=== PATIENT | male | born 1980 | race Asian ===

== ENCOUNTER 2023-08-01 10:15 | Outpatient (AMB) | payer OTHER, SELFPAY ==
--- NOTE | 2023-08-01 10:18 | MHC.OFFVIS ---
Vital Signs 08/01/23 10:19 Height 6 ft Weight 152 lb 8.958 oz BMI 20.7 BP 112/60 Blood Pressure Location Lt brachial Position Sitting Pulse 61 Intake Visit Reasons: Colonoscopy and EGD screening Intake Note: New patient in office today for EGD and Colonoscopy screening. CC: Patient c/o constipation and a little bit of blood when he wipes. Denies other GI symptoms today. Linoleum Installer Required: No Allergies Tetracyclines Allergy (Severe, Verified 08/29/23 12:13) urticaria minocycline Allergy (Unknown, Verified 08/29/23 12:13) Unknown HPI HPI Colonoscopy and EGD screening: Details: 43-year-old male here for a ?colonoscopy and EGD screening? he is referred by the [facility]. PMX TYSON HYPOTHYROID Ichthyosis Eczema/seborrheic dermatitis Posttraumatic stress disorder/anxiety depression Optic nerve disorder Constipation * SURGICAL HISTORY Lasix eye surgery Wilson teeth removal * ALLERGIES Minocycline tetracycline - uticaria * Labs supplied by the [facility]: 02/2023 unremarkable CBC, unremarkable renal and hepatic panels. TODAY'S VISIT He has anxious halting speech pattern that slows the history relations. He did not think he was referred for a colonoscopy, he is concerned about chronic constipation. He will go 3-4 days w/o a BM. He will have intermittent bloating and some left sided pain with he is very backed up. This has been a problem for years. He admits he does not drink enough he has 1c coffee in the am ant then just water, no soda. No extreme ETOH. He eats alot of fruits and veggies. He does take a fiber supplement. He is supposed to take it bid but frequently fogets the second dose. He has no real experience with OTC laxative. No upper GI sx and not RB, he has a hard time gaining weight but he has not been losing weight. He has not been on thyroid medications for a couple of years, he says his doctors stopped the medications because it went back to normal. He has never seen an stevedoring supervisor. He has intermittent episodes of a rash on the trunk that is red but not raised. He does not what sets it off adn he has not mentioned this to other providers. This happens about once every 2 weeks. This occurs mostly at night. Bilirubin is not elevated. He has TYSON and denies any other cardiac or respiratory problems. He is naive to anesthesia and sedation. No ID problems. His older brother had polyps. ROV 4 weeks. Trial Senna. COUNT INCLUDES THE [facility] Surgical History S/P LASIK surgery of both eyes Family History Father Prostate cancer Social History Household Members: Family Household Members Other:: Aunt Alcohol intake: current Alcohol intake frequency: holidays/special occasions only Alcohol type: beer Patient Tobacco Use Status: Former Tobacco user Quit Date: 2012 service: Yes Current occupational status: disabled Review of Systems Const Denies fatigue, Denies fever(s), Denies night sweats, Denies poor appetite and Denies weight loss ENT Reports Normal hearing present, Denies dental pain, Denies dysphagia, Denies hearing loss, Denies mouth pain, Denies odynophagia, Denies throat swelling, Denies tongue swelling and Reports other (Dentition adequate) Card Reports no additional complaints Resp Reports no additional complaints GI Details: Denies abdominal pain, Denies melena, Reports bloating, Denies hematochezia, Reports constipation, Denies GI cramping, Denies dysphagia, Denies excessive flatus, Denies early satiety, Denies heartburn, Denies diarrhea, Denies nausea, Denies odynophagia, Denies vomiting and Denies hematemesis Skin/Breast Denies pruritus, Denies lesions, Reports rash and Denies jaundice Neuro Reports Normal hearing present and Denies Abnormal speech present Endo Denies fatigue Aller/Immun Denies throat swelling and Denies tongue swelling Physical Exam Vital Signs: Last Vital Signs Pulse 61 08/01/23 10:19 BP 112/60 08/01/23 10:19 BMI result Body Mass Index 20.7 Const General: cooperative, no acute distress, well developed and well groomed Nutritional Appearance: average body habitus and well nourished Orientation/consciousness: oriented to person, oriented to place and oriented to time Limitations: No language barrier and other limitations HEENT Head: Yes normocephalic and Yes atraumatic Eyes General: appearance normal, both eyes and all related structures Pupils: Equal, round and reactive pupils present Neck Neck: Yes normal visual inspection and Yes no lymphadenopathy Thyroid: Thyroid normal Resp Effort & Inspection: normal respiratory effort and able to speak in complete sentences Auscultation: clear to auscultation bilaterally Cardio Rate: regular rate Rhythm: regular rhythm Heart sounds: Normal, physiologic split S2 sound present Peripheral pulses: radial pulses present and posterior tibial pulses present GI Inspection: No distended and No Abdominal panniculus present Palpation (GI): Soft to palpation, nontender, no guarding, not rigid and No hepatosplenomegaly present Percussion: Yes normal to percussion Auscultation: normal bowel sounds Rectal Exam - Male: Yes deferred Skin General skin exam: no rashes or lesions noted, turgor normal, skin not dry, no jaundice, No spider nevi and no striae Rashes: no rashes Nails: normal Neuro General: oriented to person, oriented to place and oriented to time Cranial nerves: Yes Equal, round and reactive pupils present and Yes Normal hearing present Speech: No Abnormal speech present Extrem General: Yes normal to inspection, No clubbing, No cyanosis and No edema Psych Appearance: grossly normal and well kempt Mental Status: mental status grossly normal Speech and movement: Normal speech and movement present Affect: normal affect Attitude: cooperative Thought process: Normal thought process present and not confabulating Thought content: Normal thought content present Insight: Fair insight present (Psych) and Limited insight present (Psych) Judgement: Fair judgement present (Psych) and Limited judgement present (Psych) Assessment & Plan Assessment & Plan (1) Pre-op examination: Code(s): Z01.818 - Encounter for other preprocedural examination Category: Medical (2) Constipation: Code(s): K59.00 - Constipation, unspecified Category: Medical Plan He has anxious halting speech pattern that slows the history relations. He did not think he was referred for a colonoscopy, he is concerned about chronic constipation. He will go 3-4 days w/o a BM. He will have intermittent bloating and some left sided pain with he is very backed up. This has been a problem for years. He admits he does not drink enough he has 1c coffee in the am ant then just water, no soda. No extreme ETOH. He eats alot of fruits and veggies. He does take a fiber supplement. He is supposed to take it bid but frequently fogets the second dose. He has no real experience with OTC laxative. No upper GI sx and not RB, he has a hard time gaining weight but he has not been losing weight. He has not been on thyroid medications for a couple of years, he says his doctors stopped the medications because it went back to normal. He has never seen an stevedoring supervisor. He has intermittent episodes of a rash on the trunk that is red but not raised. He does not what sets it off adn he has not mentioned this to other providers. This happens about once every 2 weeks. This occurs mostly at night. Bilirubin is not elevated. He has TYSON and denies any other cardiac or respiratory problems. He is naive to anesthesia and sedation. No ID problems. His older brother had polyps. ROV 4 weeks. Trial Senna. Orders: Orders Colonoscopy - GI Use Only 08/01/23 Z.818 - Encounter for other preprocedural examination Thyroid Peroxidase Antibodies 08/01/23 K59.00 - Constipation, unspecified, Z818 - Encounter for other preprocedural examination Comprehensive Met. Panel 08/01/23 K59.00 - Constipation, unspecified, Z.818 - Encounter for other preprocedural examination TSH reflex Free T4 08/01/23 K59.00 - Constipation, unspecified, Z.818 - Encounter for other preprocedural examination Medications: New peg 3350-electrolytes 236-22.74-6.74 -5.86 gram (Golytely) until fecal effluent is clear; do not exceed a total volume of 2,000 mL 240 mL PO Q10M 4,000 mL 0RF 1 day Z12.11 - Encounter for screening for malignant neoplasm of colon sennosides (Senna Laxative) 17.2 mg (2 x 8.6 mg) PO BEDTIME 60 tabs 3RF K59.00 - Constipation, unspecified bisacodyl (Dulcolax (bisacodyl)) 10 mg (2 x 5 mg) PO BEDTIME 4 tabs 0RF 2 days Coding Level of Care Code New Pt Level 3 (95255) Diagnoses Pre-op examination Z01.818 Constipation K59.00
[2023-08-01 10:19] VITALS: BP 112/60; PULSE 61; BMI 20.7
== END 2023-08-01 11:29 | disposition home or self-care (01) ==
PROVIDERS: PCP Internal Medicine; Visit Provider Nurse Practitioner
DX: K59.04 Chronic idiopathic constipation (principal); Z01.818 Encounter for other preprocedural examination; Z83.719 Family history of colon polyps, unspecified
CPT/HCPCS: 99203

== ENCOUNTER 2023-08-01 10:15 | Outpatient (REF) | payer OTHER, SELFPAY ==
[2023-08-01 12:57] LABS: Alanine Aminotransferase 25 U/L (0-40); Albumin Level 4.3 g/dL (3.5-5.0); Alkaline Phosphatase 73 U/L (39-117); Anion Gap 9 (12-20); Aspartate Amino Transferase 22 U/L (5-37); Bilirubin Total 0.7 mg/dL (0.0-1.0); Blood Urea Nitrogen 19 mg/dL (9-16); Calcium 9.8 mg/dL (8.4-10.2); Carbon Dioxide 31 mmol/L (22-29); Chloride 105 mmol/L (96-108); Estimated Glomerular Filt Rate > 60; Glucose Random 84 mg/dL (60-115); Potassium 4.2 mmol/L (3.3-5.1); Sodium 141 mmol/L (135-145); Total Protein 7.6 g/dL (6.5-8.0)
[2023-08-01 13:14] LABS: TSH reflex Free T4 5.32 uIU/mL (0.32-4.0)
[2023-08-01 13:54] LABS: Free T4 (Free Thyroxine) 0.82 ng/dL (0.71-1.85)
[2023-08-02 18:03] LABS: Thyroid Peroxidase Antibodies 2 IU/mL (<9)
== END 2023-08-01 10:16 | disposition home or self-care (01) ==
LOC: HO.LAB 10:15
PROVIDERS: PCP Internal Medicine; Visit Provider Nurse Practitioner
DX: Z01.818 Encounter for other preprocedural examination (principal); K59.00 Constipation, unspecified
CPT/HCPCS: 36415; 80053; 84439; 84443; 86376; 99202

== ENCOUNTER 2023-08-29 12:12 | Outpatient (AMB) | payer OTHER, SELFPAY ==
--- NOTE | 2023-08-29 12:13 | MHC.OFFVIS ---
Vital Signs 08/29/23 12:17 Height 6 ft Weight 152 lb BMI 20.6 BP 92/53 L Blood Pressure Location Lt brachial Position Sitting Pulse 87 Intake Visit Reasons: Follow up Intake Note: Follow up for constipation,lab results Patient cc: diarrhea on and off, denies any other GI issues. [employer] Required: No Accompanied by: Self / Same As Patient Allergies Tetracyclines Allergy (Severe, Verified 08/29/23 12:13) urticaria minocycline Allergy (Unknown, Verified 08/29/23 12:13) Unknown HPI HPI Follow up: Details: Assessment & Plan (1) Pre-op examination: Code(s): Z01.818 - Encounter for other preprocedural examination (2) Constipation: Code(s): K59.00 - Constipation, unspecified Orders: Orders Colonoscopy - GI Use Only Today Z01.818 - Encounter for other preprocedural examination Thyroid Peroxidase Antibodies Today K59.00 - Constipation, unspecified, Z01.818 - Encounter for other preprocedural examination Comprehensive Met. Panel Today K59.00 - Constipation, unspecified, Z01.818 - Encounter for other preprocedural examination TSH reflex Free T4 Today K59.00 - Constipation, unspecified, Z01.818 - Encounter for other preprocedural examination Medications: New peg 3350-electrolytes 236-22.74-6.74 -5.86 gram (Golytely) until fecal effluent is clear; do not exceed a total volume of 2,000 mL 240 mL PO Q10M 1 day 4,000 mL 0RF Z12.11 - Encounter for screening for malignant neoplasm of colon sennosides (Senna Laxative) 17.2 mg (2 x 8.6 mg) PO BEDTIME 60 tabs 3RF K59.00 - Constipation, unspecified bisacodyl (Dulcolax (bisacodyl)) 10 mg (2 x 5 mg) PO BEDTIME 2 days 4 tabs 0RF He has anxious halting speech pattern that slows the history taking. He did not think he was referred for a colonoscopy, he is concerned about chronic constipation. He will go 3-4 days w/o a BM. He will have intermittent bloating and some left sided pain with he is very backed up. This has been a problem for years. He admits he does not drink enough he has 1c coffee in the am ant then just water, no soda. No extreme ETOH. He eats alot of fruits and veggies. He does take a fiber supplement. He is supposed to take it bid but frequently fogets the second dose. He has no real experience with OTC laxative. No upper GI sx and not RB, he has a hard time gaining weight but he has not been losing weight. He has not been on thyroid medications for a couple of years, he says his doctors stopped the medications because it went back to normal. He has never seen an trim stencil maker. He has intermittent episodes of a rash on the trunk that is red but not raised. He does not what sets it off adn he has not mentioned this to other providers. This happens about once every 2 weeks. This occurs mostly at night. He has TYSON but no other resp probs no card Naive to anes and sed. No ID problems. His older brother had polyps. ROV 4 weeks. Trial Senna. LABS: Laboratory Tests 08/01/23 11:58 Estimated GFR > 60 Total Bilirubin 0.7 AST 22 ALT 25 Alkaline Phosphatase 73 TSH 5.32 H Free T4 0.82 Thyroid Peroxidase Ab 2 COLONOSCOPY BIOPSY TODAY'S VISIT He has anxious halting speech pattern that slows the history taking. He has not yet been contacted for colonoscopy. He does feel generally better with the senna but is concerned about taking it nursing home. He already has psyllium fiber and is taking it qd. I suggest magnesium as a more natural alternative. ROV after colonoscopy. [facility] Surgical History S/P LASIK surgery of both eyes Family History Father Prostate cancer Social History Household Members: Family Household Members Other:: Aunt Alcohol intake: current Alcohol intake frequency: holidays/special occasions only Alcohol type: beer Patient Tobacco Use Status: Former Tobacco user Quit Date: 2012 service: Yes Current occupational status: disabled Review of Systems Const Denies fatigue, Denies fever(s), Denies night sweats, Denies poor appetite and Denies weight loss ENT Reports Normal hearing present, Denies dental pain, Denies dysphagia, Denies hearing loss, Denies mouth pain, Denies odynophagia, Denies throat swelling, Denies tongue swelling and Reports other (Dentition adequate) Card Reports no additional complaints Resp Reports no additional complaints GI Details: Denies abdominal pain, Denies melena, Reports bloating, Denies hematochezia, Reports constipation, Denies GI cramping, Denies dysphagia, Denies excessive flatus, Denies early satiety, Denies heartburn, Denies diarrhea, Denies nausea, Denies odynophagia, Denies vomiting and Denies hematemesis Skin/Breast Denies pruritus, Denies lesions, Denies rash and Denies jaundice Neuro Reports Normal hearing present and Denies Abnormal speech present Endo Denies fatigue Aller/Immun Denies throat swelling and Denies tongue swelling Physical Exam Vital Signs: Last Vital Signs Pulse 87 08/29/23 12:17 BP 92/53 L 08/29/23 12:17 BMI result Body Mass Index 20.6 Const General: cooperative, no acute distress, well developed and well groomed Nutritional Appearance: average body habitus and well nourished Orientation/consciousness: oriented to person, oriented to place and oriented to time Limitations: No language barrier HEENT Head: Yes normocephalic and Yes atraumatic Eyes General: appearance normal, both eyes and all related structures Pupils: Equal, round and reactive pupils present Neck Neck: Yes normal visual inspection and Yes no lymphadenopathy Thyroid: Thyroid normal Resp Effort & Inspection: normal respiratory effort and able to speak in complete sentences Auscultation: clear to auscultation bilaterally Cardio Rate: regular rate Rhythm: regular rhythm Heart sounds: Normal, physiologic split S2 sound present Peripheral pulses: radial pulses present and posterior tibial pulses present GI Inspection: No distended and No Abdominal panniculus present Palpation (GI): Soft to palpation, nontender, no guarding, not rigid and No hepatosplenomegaly present Percussion: Yes normal to percussion Auscultation: normal bowel sounds Rectal Exam - Male: Yes deferred Skin General skin exam: no rashes or lesions noted, turgor normal, skin not dry, no jaundice, No spider nevi and no striae Rashes: no rashes Nails: normal Neuro General: oriented to person, oriented to place and oriented to time Cranial nerves: Yes Equal, round and reactive pupils present and Yes Normal hearing present Speech: No Abnormal speech present Extrem General: Yes normal to inspection, No clubbing, No cyanosis and No edema Psych Appearance: grossly normal and well kempt Mental Status: mental status grossly normal Speech and movement: Pressured speech present Affect: Anxious affect present Attitude: cooperative Thought process: not confabulating and Racing thoughts present Thought content: Normal thought content present Insight: Limited insight present (Psych) Judgement: Limited judgement present (Psych) Results Reviewed Results Reviewed: Laboratory Tests 08/01/23 11:58 Estimated GFR > 60 Total Bilirubin 0.7 AST 22 ALT 25 Alkaline Phosphatase 73 TSH 5.32 H Free T4 0.82 Thyroid Peroxidase Ab 2 Assessment & Plan Assessment & Plan (1) Constipation: Code(s): K59.00 - Constipation, unspecified Category: Medical Plan He has anxious halting speech pattern that slows the history taking. He has not yet been contacted for colonoscopy. He does feel generally better with the senna but is concerned about taking it nursing home. He already has psyllium fiber and is taking it qd. I suggest magnesium as a more natural alternative. ROV after colonoscopy. COLONOSCOPY BIOPSY Medications: New magnesium 500 mg (2 x 250 mg) PO DAILY 60 tabs 6RF K59.00 - Constipation, unspecified Coding Level of Care Code Est Pt Level 3 (96308) Diagnoses Constipation K59.00
[2023-08-29 12:17] VITALS: BP 92/53; PULSE 87; BMI 20.6
== END 2023-08-29 12:49 | disposition home or self-care (01) ==
LOC: HO.HGI 12:12
PROVIDERS: PCP Internal Medicine; Referring Provider Internal Medicine; Visit Provider Nurse Practitioner
DX: K59.00 Constipation, unspecified (principal)
CPT/HCPCS: 99213

== ENCOUNTER → 2023-08-29 12:12 | Outpatient (BNVA) | payer OTHER, SELFPAY | PROVIDERS: PCP Internal Medicine; Visit Provider Nurse Practitioner | DX: Z01.818 Encounter for other preprocedural examination (principal); K59.00 Constipation, unspecified | CPT/HCPCS: 99212 ==

== ENCOUNTER 2024-01-04 11:22 | Day surgery (SDC) | payer OTHER, SELFPAY ==
--- NOTE | 2024-01-03 10:25 | HO.ANESPROP2 ---
HPI - Anesthesia Eval Consult details Narrative: 43yo M for Colonoscopy PMF Active Problems Active Problems: All Active Problems Pre-op examination (Acute) Constipation (Acute) Depression with anxiety (Acute) PTSD (post-traumatic stress disorder) (Acute) Optic nerve disorder (Acute) Seborrheic dermatitis (Acute) Eczema (Acute) Hypothyroid (Acute) TYSON (obstructive sleep apnea) (Acute) Past Medical History Medical History (Updated 01/01/24 @ 14:43 by Janett Gould RN) Hypothyroid Sleep apnea PTSD (post-traumatic stress disorder) Depression with anxiety Family History Family History Father Prostate cancer Surgical History Surgical History S/P LASIK surgery of both eyes Social History Social History Household Members: Family Household Members Other:: Aunt Alcohol intake: current Alcohol intake frequency: holidays/special occasions only Alcohol type: beer Patient Tobacco Use Status: Former Tobacco user service: Yes Current occupational status: disabled Meds Allergies Allergy/AdvReac Type Severity Reaction Status Date / Time Tetracyclines Allergy Severe urticaria Verified 08/29/23 12:13 minocycline Allergy Unknown Unknown Verified 08/29/23 12:13 Assessment and Plan Assessment Anesthesia Assessment: Chart Reviewed
[2024-01-04] VITALS (7 sets, daily range): BP systolic 80–97; BP diastolic 47–61; PULSE 54–67; RESP 16; TEMP 36.7–37.1; O2SAT 99–100
--- NOTE | 2024-01-04 11:52 | MHC.SHP ---
Pre-Procedural Eval Section A - 24 Hr Update-Section A only Date of Service: 01/04/24 Section B - Complete if H&P > 30 days Chief Complaint: Screening Details of Present Illness: S/P LASIK surgery of both eyes Family History Father Prostate cancer Allergies: Allergies Allergy/AdvReac Type Severity Reaction Status Date / Time Tetracyclines Allergy Severe urticaria Verified 08/29/23 12:13 minocycline Allergy Unknown Unknown Verified 08/29/23 12:13 Review of Systems Review of Systems Comment: Ten point ROS negative Exam Exam Comment: Gen appear: No acute distress HEENT: no icterus Chest: No overt resp distress Abd: soft, nontender, nondistended Psych: Stable affect, answering questions appropriately Neuro: A/Ox3 noted to move all extremities spontaneously Ext: no peripheral edema Plan Diagnosis/Plan: Unchanged I have reviewed the history and physical and performed a pertinent physical examination on my patient. No changes have occurred unless specified. Time Spent With Patient Time: Total time managing care of this patient today ____ minutes.
[2024-01-04] MEDS: Lactated Ringers 1,000 ML 100 ML IVCONT (12:10)
--- NOTE | 2024-01-04 12:54 | P.OPN-COLO_ITS ---
Colonoscopy Operative Note Operative Note Date of Service: 01/04/24 Narrative: Procedure: Colonoscopy Indication: Screening Endoscopist: Smita Benson MD Anesthesia Provider: Lydia Barragan MD Anesthesia type: MAC Instrument: Olympus [id number]-[id number] Consent: Indication, risks vs benefits, and alternatives were discussed with the patient who gave written informed consent to proceed. EKG, pulse, pulse oximetry and blood pressure were monitored throughout the procedure. Please see anesthesia flowsheet. Procedure: The patient was brought to the procedure room and placed in the left lateral decubitus position. IV medications were administered by the anesthesia provider in attendance. A digital rectal exam was performed which was normal. A distal attachment cap was affixed to the tip of the colonoscope which was then inserted through the anus and advanced through the colon to the cecum at 80 cm. Appendiceal orifice and ileocecal valve were identified. Mucosa was carefully examined under high definition white light as the instrument was slowly withdrawn in a retrograde panoramic fashion. Retroflexion was performed in rectum. The procedure wassomewhat difficult due to redundant colon kelly in sigmoid and transverse colon sections. There were no immediate obvious complications. The quality of the prep was BBPS: 3+2+2 = adequate Withdrawal time 6 minutes. Limitations: No limitations. Findings: Mucosa: Normal to cecum. Protruding lesions:. * Small internal hemorrhoids without stigmata of recent bleeding. Impression: 1. Normal colon mucosa 2. Redundant colon 3. Internal hemorrhoids Recommendations: - Given longstanding complaint of constipation and atypical a tortuous colon on scope today, recommend barium enema for ?dolichocolon (redundant colon) - Repeat colonoscopy in 10 years for asymptomatic colorectal cancer screening
== END 2024-01-04 14:06 | disposition home or self-care (01) ==
PROVIDERS: Visit Provider Internal Medicine
PROC: 0DJD8ZZ Inspection of Lower Intestinal Tract, Via Natural or Artificial Opening Endoscopic (ICD-10-PCS; CPT 45378; principal; 2024-01-04 13:00)
DX: Z12.11 Encounter for screening for malignant neoplasm of colon (principal); Z83.719 Family history of colon polyps, unspecified; Q43.8 Other specified congenital malformations of intestine; K64.8 Other hemorrhoids; K59.00 Constipation, unspecified; E03.9 Hypothyroidism, unspecified; G47.33 Obstructive sleep apnea (adult) (pediatric); F41.8 Other specified anxiety disorders; F43.10 Post-traumatic stress disorder, unspecified; Z88.1 Allergy status to other antibiotic agents; Z87.891 Personal history of nicotine dependence; Z98.890 Other specified postprocedural states
CPT/HCPCS: 45378; J2704

== ENCOUNTER → 2024-01-04 11:22 | Outpatient (BNV) | payer OTHER, SELFPAY | PROVIDERS: Visit Provider Internal Medicine | DX: Z12.11 Encounter for screening for malignant neoplasm of colon (principal); Q43.8 Other specified congenital malformations of intestine; K64.8 Other hemorrhoids | CPT/HCPCS: 45378 ==

== ENCOUNTER 2024-01-17 13:14 | Outpatient (AMB) | payer OTHER, SELFPAY ==
[2024-01-17 13:21] VITALS: BP 114/71; PULSE 71
--- NOTE | 2024-01-17 13:21 | A.OFFVIS_ITS ---
Vital Signs 01/17/24 13:21 Height 5 ft 11 in Weight 143 lb 4.807 oz BMI 20.0 BP 114/71 Blood Pressure Location Rt brachial Position Sitting Pulse 71 Intake Visit Reasons: S/p colon Intake Note: Dannie Bryant returns to in office follow up s/p colonoscopy. CC: Patient reports that he usually has a BM every 3 days. Denies other GI concerns today. Color Buffer Required: No Accompanied by: Self / Same As Patient Allergies Tetracyclines Allergy (Severe, Verified 01/17/24 13:29) urticaria minocycline Allergy (Unknown, Verified 01/17/24 13:29) Unknown HPI HPI S/p colon: Details: Assessment & Plan (1) Constipation: Code(s): K59.00 - Constipation, unspecified Category: Medical Plan He has anxious halting speech pattern that slows the history taking. He has not yet been contacted for colonoscopy. He does feel generally better with the senna but is concerned about taking it buttermaker continuous churn. He already has psyllium fiber and is taking it qd. I suggest magnesium as a more natural alternative. ROV after colonoscopy. Medications: New magnesium 500 mg (2 x 250 mg) PO DAILY 60 tabs 6RF K59.00 - Constipation, uns pecified COLONOSCOPY 01/04/24 Findings: Mucosa: Normal to cecum. Protruding lesions:. * Small internal hemorrhoids without stigmata of recent bleeding. Impression: 1. Normal colon mucosa 2. Redundant colon 3. Internal hemorrhoids Recommendations: - Given longstanding complaint of constipation and atypical a tortuous colon on scope today, recommend barium enema for ?dolichocolon (redundant colon) - Repeat colonoscopy in 10 years for asymptomatic colorectal cancer screening TODAY'S VISIT He is agreeable to a 10 year follow up. The procedure was well tolerated. The results were explained and the patient is agreeable to the follow-up interval as stated. The bowel pattern has returned to normal. Education was provided to tell any 1st degree relatives about their findings to be sure that they are screened by age 45. Educated that they will be put on a recall list when it is time for their repeat scope but should they move out of state or away from the hospital they will need to remember along with their primary to repeat the procedure in a timely fashion to avoid any adverse complications. HE continues to be constipated. The senna worked well at first, but then it seemed to stop working. Not much luck with the magnesium supplement. We have a lengthy discussion regarding fiber and fluids - he is not a good fluid drinker. I print him a fiber list for his consideration. He wants to try Linzess since he has failed senna, dulcolax, miralax, magnesium, and miralax. ROV 5 weeks. [facility] Medical History Hypothyroid Sleep apnea PTSD (post-traumatic stress disorder) Depression with anxiety Surgical History H/O colonoscopy S/P LASIK surgery of both eyes Family History Father Prostate cancer Social History Household Members: Family Household Members Other:: Aunt Alcohol intake: current Alcohol intake frequency: holidays/special occasions only Alcohol type: beer Patient Tobacco Use Status: Former Tobacco user Tobacco use type: Cigarette service: Yes Current occupational status: disabled Review of Systems Const Denies fatigue, Denies fever(s), Denies night sweats, Denies poor appetite and Denies weight loss ENT Reports Normal hearing present, Denies dental pain, Denies dysphagia, Denies h earing loss, Denies mouth pain, Denies odynophagia, Denies throat swelling, Denies tongue swelling and Reports other (Dentition adequate) Card Reports no additional complaints Resp Reports no additional complaints GI Details: Denies abdominal pain, Denies melena, Denies bloating, Denies hematochezia, Reports constipation, Denies GI cramping, Denies dysphagia, Denies excessive flatus, Denies early satiety, Denies heartburn, Denies diarrhea, Denies nausea, Denies odynophagia, Denies vomiting and Denies hematemesis Skin/Breast Denies pruritus, Denies lesions, Denies rash and Denies jaundice Neuro Reports Normal hearing present and Denies Abnormal speech present Endo Denies fatigue Aller/Immun Denies throat swelling and Denies tongue swelling Physical Exam Vital Signs: Last Vital Signs Pulse 71 01/17/24 13:21 BP 114/71 01/17/24 13:21 BMI result Body Mass Index 20.0 Const General: cooperative, no acute distress, well developed and well groomed Nutritional Appearance: average body habitus and well nourished Orientation/consciousness: oriented to person, oriented to place and oriented to time Limitations: No language barrier and other limitations HEENT Head: Yes normocephalic and Yes atraumatic Eyes General: appearance normal, both eyes and all related structures Pupils: Equal, round and reactive pupils present Neck Neck: Yes normal visual inspection and Yes no lymphadenopathy Thyroid: Thyroid normal Resp Effort & Inspection: normal respiratory effort and able to speak in complete sentences Auscultation: clear to auscultation bilaterally Cardio Rate: regular rate Rhythm: regular rhythm Heart sounds: Normal, physiologic split S2 sound present Peripheral pulses: radial pulses present and posterior tibial pulses present GI Inspection: No distended and No Abdominal panniculus present Palpation (GI): Soft to palpation, nontender, no guarding, not rigid and No hepatosplenomegaly present Percussion: Yes normal to percussion Auscultation: normal bowel sounds Rectal Exam - Male: Yes deferred Skin General skin exam: no rashes or lesions noted, turgor normal, skin not dry, no jaundice, No spider nevi and no striae Rashes: no rashes Nails: normal Neuro General: oriented to person, oriented to place and oriented to time Cranial nerves: Yes Equal, round and reactive pupils present and Yes Normal hearing present Speech: No Abnormal speech present Extrem General: Yes normal to inspection, No clubbing, No cyanosis and No edema Psych Appearance: grossly normal and well kempt Mental Status: mental status grossly normal Speech and movement: Other speech and movement exam findings present (Psych) (Odd speech pattern with difficulty expressing himself) Affect: Anxious affect present Attitude: cooperative Thought process: Circumstantial thought process present and not confabulating Thought content: Normal thought content present Insight: Poor insight present (Psych) Judgement: Poor judgement present (Psych) Assessment & Plan Assessment & Plan (1) Constipation: Code(s): K59.00 - Constipation, unspecified Category: Medical Plan He is agreeable to a 10 year follow up. The procedure was well tolerated. The results were explained and the patient is agreeable to the follow-up interval as stated. The bowel pattern has returned to normal. Education was provided to tell any 1st degree relatives about their findings to be sure that they are screened by age 45. Educated that they will be put on a recall list when it is time for their repeat scope but should they move out of state or away from the hospital they will need to remember along with their primary to repeat the procedure in a timely fashion to avoid any adverse complications. HE continues to be constipated. The senna worked well at first, but then it seemed to stop working. Not much luck with the magnesium supplement. We have a lengthy discussion regarding fiber and fluids - he is not a good fluid drinker. I print him a fiber list for his consideration. He wants to try Linzess since he has failed senna, dulcolax, miralax, magnesium, and miralax. ROV 5 weeks. Medications: New linaclotide (Linzess) 72 mcg PO QAM 30 caps 6RF K59.00 - Constipation, unspecified On Hold sennosides (Senna Laxative) Hold Comment: Doctor's Order 17.2 mg (2 x 8.6 mg) PO BEDTIME 60 tabs 3RF K59.00 - Constipation, unspecified Coding Level of Care Code Est Pt Level 3 (22834) Diagnoses Constipation K59.00
== END 2024-01-17 16:03 | disposition home or self-care (01) ==
PROVIDERS: PCP Internal Medicine; Visit Provider Nurse Practitioner
DX: K59.00 Constipation, unspecified (principal)
CPT/HCPCS: 99213

== ENCOUNTER → 2024-01-17 13:14 | Outpatient (BNVA) | payer OTHER, SELFPAY | PROVIDERS: PCP Internal Medicine; Visit Provider Nurse Practitioner | DX: K59.00 Constipation, unspecified (principal); Z98.890 Other specified postprocedural states | CPT/HCPCS: 99212 ==

== ENCOUNTER 2024-04-10 12:29 | Outpatient (AMB) | payer OTHER, SELFPAY ==
--- OUTSIDE RECORDS SUMMARY | 2024-04-10 12:32 | XMS_ITS | Continuity of Care Document ---
Author Organization [facility] Address [address] [place] [address] Phone Care Team Providers Care Transport Pilot Name Role Phone Unavailable Unavailable Unavailable Allergies, [...] Provider Providers Copied on Encounter Office/outpat ient visit,[facility], [address], [place], [place], [id number], tel:[phone] [facility] pain (chief complaint) PodagraIngrown toenail 3 No Information Office/outpat ient visit,[facility], [address], [place], [place], [id number], tel:[phone] [facility] cold symptoms (chief complaint) ACUTE URI NOSACUTE BRONCHITIS [address] [place], [place], [id number], [place]. tel:[phone] Office/outpat ient visit,[facility], [address], [place], [id number], tel:[phone] [facility] skin growth/ bump (chief complaint) Mucosal vesicle [address] [place], [address], [place]. tel:[phone] Office/outpat ient visit,[facility], [address], [place], [id number], tel:[phone] [facility] pain, foot (chief complaint) Local skin infection [address] Ariela [address]. [address] [place], [address], . tel:[phone] Family History Family Member Type Diagnosis Age At Onset No Information Payers Payer name Insurance type Covered libertarian ID Authoriza tion(s) No Information Social History [...]
[2024-04-10 12:41] VITALS: BP 112/66; PULSE 65; BMI 20.7
--- NOTE | 2024-04-10 12:41 | A.OFFVIS_ITS ---
Vital Signs 04/10/24 12:41 Height 5 ft 11 in Weight 148 lb 2.41 oz BMI 20.7 BP 112/66 Blood Pressure Location Lt brachial Position Sitting Pulse 65 Intake Visit Reasons: follow up Intake Note: Dannie presents in office today for a scheduled 3 mos FUV. CC: Patient reports that the Linzess worked well at the beginning but is now working as in the beginning now. Patient is not sure if he still is supposed to take the magnesium because he is taking multivitamins. Filling Separator Required: No Accompanied by: Self / Same As Patient Allergies Tetracyclines Allergy (Severe, Verified 04/10/24 12:51) urticaria minocycline Allergy (Unknown, Verified 04/10/24 12:51) Unknown HPI HPI follow up: Details: Assessment & Plan (1) Constipation: Code(s): K59.00 - Constipation, unspecified Category: Medical Plan He is agreeable to a 10 year follow up. The procedure was well tolerated. The results were explained and the patient is agreeable to the follow-up interval as stated. The bowel pattern has returned to normal. Education was provided to tell any 1st degree relatives about their findings to be sure that they are screened by age 45. Educated that they will be put on a recall list when it is time for their repeat scope but should they move out of state or away from the hospital they will need to remember along with their primary to repeat the procedure in a timely fashion to avoid any adverse complications. HE continues to be constipated. The senna worked well at first, but then it seemed to stop working. Not much luck with the magnesium supplement. We have a lengthy discussion regarding fiber and fluids - he is not a good fluid drinker. I print him a fiber list for his consideration. He wants to try Linzess since he has failed senna, dulcolax, miralax, magnesium, and miralax. ROV 5 weeks. Medications: New linaclotide (Linzess) 72 mcg PO QAM 30 caps 6RF K59.00 - Constipation, unspecified On Hold sennosides (Senna Laxative) Hold Comment: Doctor's Order 17.2 mg (2 x 8.6 mg) PO BEDTIME 60 tabs 3RF K59.00 - Constipation, unspecified TODAYS VISIT Bradley worked initially, but then it stopped working. This is common and usually means we need to increase the dose from 72mcg to 145mcg. He had an episode of diarrhea after he started putting fruits in a consulting hr professional with water. I think this caused a reaction to the sudden increase of concentrated sugars and fiber. I advise him to go more slowly if he wants to do this. ROV 6 weeks. [facility] Medical History Hypothyroid Sleep apnea PTSD (post-traumatic stress disorder) Depression with anxiety Surgical History H/O colonoscopy S/P LASIK surgery of both eyes Family History Father Prostate cancer Social History Household Members: Family Household Members Other:: Aunt Alcohol intake: current Alcohol intake frequency: holidays/special occasions only Alcohol type: beer Patient Tobacco Use Status: Former Tobacco user Tobacco use type: Cigarette service: Yes Current occupational status: disabled Review of Systems Const Denies fatigue, Denies fever(s), Denies night sweats, Denies poor appetite and Denies weight loss ENT Reports Normal hearing present, Denies dental pain, Denies dysphagia, Denies hearing loss, Denies mouth pain, Denies odynophagia, Denies throat swelling, Denies tongue swelling and Reports other (Dentition adequate) Card Reports no additional complaints Resp Reports no additional complaints GI Details: Denies abdominal pain, Denies melena, Reports bloating, Denies hematochezia, Reports constipation, Denies GI cramping, Denies dysphagia, Denies excessive flatus, Denies early satiety, Denies heartburn, Denies diarrhea, Denies nausea, Denies odynophagia, Denies vomiting and Denies hematemesis Skin/Breast Denies pruritus, Denies lesions, Denies rash and Denies jaundice Neuro Reports Normal hearing present and Reports Abnormal speech present (Seems to have word-finding difficulty and trouble organizing his thoughts) Endo Denies fatigue Aller/Immun Denies throat swelling and Denies tongue swelling Physical Exam Vital Signs: Last Vital Signs Pulse 65 04/10/24 12:41 BP 112/66 04/10/24 12:41 BMI result Body Mass Index 20.7 Const General: cooperative, no acute distress, well developed and well groomed Nutritional Appearance: average body habitus and well nourished Orientation/consciousness: oriented to person, oriented to place and oriented to time Limitations: No language barrier and other limitations HEENT Head: Yes normocephalic and Yes atraumatic Eyes General: appearance normal, both eyes and all related structures Pupils: Equal, round and reactive pupils present Neck Neck: Yes normal visual inspection and Yes no lymphadenopathy Thyroid: Thyroid normal Resp Effort & Inspection: normal respiratory effort and able to speak in complete sentences Auscultation: clear to auscultation bilaterally Cardio Rate: regular rate Rhythm: regular rhythm Heart sounds: Normal, physiologic split S2 sound present Peripheral pulses: radial pulses present and posterior tibial pulses present GI Inspection: No distended and No Abdominal panniculus present Palpation (GI): Soft to palpation, nontender, no guarding, not rigid and No hepatosplenomegaly present Percussion: Yes normal to percussion Auscultation: normal bowel sounds Rectal Exam - Male: Yes deferred Skin General skin exam: no rashes or lesions noted, turgor normal, skin not dry, no j aundice, No spider nevi and no striae Rashes: no rashes Nails: normal Neuro General: oriented to person, oriented to place and oriented to time Cranial nerves: Yes Equal, round and reactive pupils present and Yes Normal hearing present Speech: Abnormal speech present (Seems to have word-finding difficulty and trouble organizing his thoughts) other (Speech is choppy with long pauses) Extrem General: Yes normal to inspection, No clubbing, No cyanosis and No edema Psych Appearance: grossly normal and well kempt Mental Status: mental status grossly normal Speech and movement: Other speech and movement exam findings present (Psych) Affect: normal affect Attitude: cooperative Thought process: Circumstantial thought process present and not confabulating Thought content: Normal thought content present Insight: Limited insight present (Psych) Judgement: Limited judgement present (Psych) Assessment & Plan Assessment & Plan (1) Constipation: Code(s): K59.00 - Constipation, unspecified Category: Medical Plan Linzess worked initially, but then it stopped working. This is common and usually means we need to increase the dose from 72mcg to 145mcg. He had an episode of diarrhea after he started putting fruits in a consulting hr professional with water. I think this caused a reaction to the sudden increase of concentrated sugars and fiber. I advise him to go more slowly if he wants to do this. ROV 6 weeks. Medications: New linaclotide (Linzess) 145 mcg PO QAM 30 caps 6RF K59.00 - Constipation, unspecified linaclotide (Linzess) 145 mcg PO QAM 30 caps 6RF K59.00 - Constipation, unspecified linaclotide (Linzess) 145 mcg PO QAM 30 caps 6RF K59.00 - Constipation, unspecified Discontinued linaclotide (Linzess) Discontinued Reason: Doctor's Order 72 mcg PO QAM 30 caps 6RF K59.00 - Constipation, unspecified bisacodyl (Dulcolax (bisacodyl)) Discontinued Reason: Patient Completed Course 10 mg (2 x 5 mg) PO BEDTIME 2 days 4 tabs 0RF Coding Level of Care Code Est Pt Level 3 (57699) Diagnoses Constipation K59.00
== END 2024-04-10 13:34 | disposition home or self-care (01) ==
PROVIDERS: PCP Internal Medicine; Visit Provider Nurse Practitioner
DX: K59.00 Constipation, unspecified (principal)
CPT/HCPCS: 99213

== ENCOUNTER → 2024-04-10 12:29 | Outpatient (BNVA) | payer OTHER, SELFPAY | PROVIDERS: PCP Internal Medicine; Visit Provider Nurse Practitioner | DX: K59.00 Constipation, unspecified (principal) | CPT/HCPCS: 99212 ==

== ENCOUNTER 2024-07-25 11:41 | Outpatient (AMB) | payer OTHER, SELFPAY ==
[2024-07-25 11:44] VITALS: BP 119/70; PULSE 71; BMI 21.3
--- NOTE | 2024-07-25 11:44 | A.OFFVIS_ITS ---
Vital Signs 07/25/24 11:44 Height 5 ft 11 in Weight 153 lb 0.013 oz BMI 21.3 BP 119/70 Blood Pressure Location Lt brachial Position Sitting Pulse 71 Intake Visit Reasons: f/u [facility] Intake Note: Patient in office today in follow up of [facility]. CC: Patient reports doing a little bit better but still has constipation sometimes. Per patient he would like to know if he has IBS. 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 This is common and usua lly means we need to increase the dose from 72mcg to 145mcg. He had an episode of diarrhea after he started putting fruits in a powder blender with water. I think this caused a reaction to the sudden increase of concentrated sugars and fiber. I advise him to go more slowly if he wants to do this. ROV 6 weeks. Medications: New linaclotide (Linzess) 145 mcg PO QAM 30 caps 6RF K59.00 - Constipation, unspecified linaclotide (Linzess) 145 mcg PO QAM 30 caps 6RF K59.00 - Constipation, unspecified linaclotide (Linzess) 145 mcg PO QAM 30 caps 6RF K59.00 - Constipation, unspecified Discontinued linaclotide (Linzess) Discontinued Reason: Doctor's Order 72 mcg PO QAM 30 caps 6RF K59.00 - Constipation, unspecified bisacodyl (Dulcolax (bisacodyl)) Discontinued Reason: Patient Completed Course 10 mg (2 x 5 mg) PO BEDTIME 2 days 4 tabs 0RF TODAY'S VISIT The Bradley at 145mcg worked at first but then stopped working. We will escalate to the 290 micro g dose. He asks to be educated on IBS. ROV nexst available. [facility] Medical History Hypothyroid Sleep apnea PTSD (post-traumatic stress disorder) Depression with anxiety Surgical History H/O colonoscopy S/P LASIK surgery of both eyes Family History Father Prostate cancer Social History Household Members: Family Household Members Other:: Aunt Alcohol intake: current Alcohol intake frequency: holidays/special occasions only Alcohol type: beer Patient Tobacco Use Status: Former Tobacco user Tobacco use type: Cigarette service: Yes Current occupational status: disabled Review of Systems Const Denies fever(s), Denies night sweats, Denies poor appetite and Denies weight loss ENT Denies dental pain, Denies dysphagia, Denies hearing loss, Denies mouth pain, Denies odynophagia and Reports other (Dentition adequate) GI Details: Denies abdominal pain, Denies melena, Denies bloating, Denies hematochezia, Reports constipation, Denies GI cramping, Denies dysphagia, Denies excessive flatus, Denies early satiety, Denies heartburn, Denies diarrhea, Denies nausea, Denies odynophagia, Denies vomiting and Denies hematemesis Physical Exam Vital Signs: Last Vital Signs Pulse 71 07/25/24 11:44 BP 119/70 07/25/24 11:44 BMI result Body Mass Index 21.3 Const General: cooperative, no acute distress, well developed and well groomed Nutritional Appearance: average body habitus and well nourished Orientation/consciousness: oriented to person, oriented to place and oriented to time Limitations: No language barrier and other limitations HEENT Head: Yes normocephalic and Yes atraumatic Eyes General: appearance normal, both eyes and all related structures Pupils: Equal, round and reactive pupils present Neck Neck: Yes normal visual inspection and Yes no lymphadenopathy Thyroid: Thyroid normal Resp Effort & Inspection: normal respiratory effort and able to speak in complete sentences Auscultation: clear to auscultation bilaterally Cardio Rate: regular rate Rhythm: regular rhythm Heart sounds: Normal, physiologic split S2 sound present Peripheral pulses: radial pulses present and posterior tibial pulses present GI Inspection: No distended and No Abdominal panniculus present Palpation (GI): Soft to palpation, nontender, no guarding, not rigid, No hepatosplenomegaly present and Hepatosplenomegaly present Percussion: Yes normal to percussion Auscultation: normal bowel sounds Rectal Exam - Male: Yes deferred Skin General skin exam: no rashes or lesions noted, turgor normal, skin not dry, no jaundice, No spider nevi and no striae Rashes: no rashes Nails: normal Neuro General: oriented to person, oriented to place and oriented to time Cranial nerves: Yes Equal, round and reactive pupils present Extrem General: Yes normal to inspection, No clubbing, No cyanosis and No edema Psych Thought process: Normal thought process present and not confabulating Thought content: Normal thought content present Insight: Good insight present (Psych) Judgement: Good judgement present (Psych) Assessment & Plan Assessment & Plan (1) Constipation: Code(s): K59.00 - Constipation, unspecified Category: Medical Plan The Linzess at 145mcg worked at first but then stopped working. We will escalate to the 290 micro g dose. He asks to be educated on IBS. ROV nexst available. Medications: New linaclotide (Linzess) 290 mcg PO QAM 30 caps 6RF 30 days Coding Level of Care Code Est Pt Level 3 (40877) Diagnoses Constipation K59.00
== END 2024-07-25 12:23 | disposition home or self-care (01) ==
LOC: HO.HGI 11:42
PROVIDERS: PCP Internal Medicine; Visit Provider Nurse Practitioner
DX: K59.00 Constipation, unspecified (principal)
CPT/HCPCS: 99213

== ENCOUNTER → 2024-07-25 11:41 | Outpatient (BNVA) | payer OTHER, SELFPAY | PROVIDERS: PCP Internal Medicine; Visit Provider Nurse Practitioner | DX: K59.00 Constipation, unspecified (principal) | CPT/HCPCS: 99212 ==

== ENCOUNTER 2024-11-11 16:34 | Outpatient (AMB) | payer OTHER, SELFPAY ==
--- OUTSIDE RECORDS SUMMARY | 2012-05-24 11:40 | XMS_ITS | Continuity of Care Document ---
Author Organization [facility] Address [address] [place] [address] Phone Care Team Providers Care Shredding Specialist Name Role Phone Unavailable Unavailable Unavailable Allergies, [...] Provider Providers Copied on Encounter Office/outpat ient visit,[facility], [address], [place], [place], [id number], tel:[phone] [facility] Urgent Care pain (chief complaint) PodagraIngrown toenail 3 No Information Office/outpat ient visit,[facility], [address], [place], [place], [id number], tel:[phone] [facility] cold symptoms (chief complaint) ACUTE URI NOSACUTE BRONCHITIS 1 Luci Raad. [address] [place], [place], [id number], [place]. tel:[phone] Office/outpat ient visit,[facility], [address], [place], [id number], tel:[phone] [facility] Urgent Care skin growth/ bump (chief complaint) Mucosal vesicle 1 Theodore [address]. [address] [place], [address], [place]. tel:[phone] Office/outpat ient visit,[facility], [address], [place], [id number], tel:[phone] [facility] Urgent Care pain, foot (chief complaint) Local skin infection 0 Ariela Rh[address]es. [address] [place], [address], . tel:[phone] Family History Family Member Type Diagnosis Age At Onset No Information Payers Payer name Insurance type Covered constitution party ID Authoriza tion(s) No Information Social [...]
--- OUTSIDE RECORDS SUMMARY | 2024-10-04 08:00 | XMS_ITS | Encounter Summary ---
Author Name [facility] [place] [facility] [place] Address [address] [place] [address] Care Team Providers Care Small Engine Technician Name Role Phone CRUZ DEL ROSARIO Primary Care Provider U EILEEN Zaman Primary Care Provider Unavailshawn LAKHANI NARDA Unavailable Unavailable LUC BEASLEY Unavailable Unavailable ISMAEL QUINONES Unavailable Unavailable TRISTEN SHEA Unavailable Unavailable ANSON PHILLIP Unavailable Unavailable GIO LUNDBERG Primary Care Provide r Unavailable Insurance Providers: All historical and current Section Date Range: From patient's date of to the date document was created. This section includes the names of all active insurance providers for the patient. Insurance Provider Type of Coverage Plan Name Start of Policy Coverage End of Policy Coverage Group Number Member ID Insurance Provider's Telephone Number Policy Harvey's Name Patient's Relationship to Policy Harvey MEDICAID MEDICAID [facility] Apr 25, 2018 MEDICAI D [id number] JEAN LEVIN PATIENT Selected Encounter This section includes the information on record at [place] for the Encounter. Date/Time Encounter Type Encounter Description Reason Provider Source Oct 04, 2024 12:00 PM NUBHVL XM PHY/QHP EA ADDL HR PSYCHOLOGICAL TESTING ICD-10-CM F43.12 Post-traumati c stress disorder, chronic MALINOFSKY,TER XANDER IHE Encounter Template Text not used by [facility] Assessments - Encounter Diagnoses This section includes the primary and secondary diagnoses documented for the Encounter. Date/Time Primary/Secondary Diagnosis Diagnosis Name Provider Source Oct 20, 2024 02:55 PM PRIMARY Post-traumatic stress disorder, chronic [facility] [place] [facility] [place] [facility] Oct 20, 2024 02:55 PM SECONDARY Adjustment disorder with mixed anxiety and depressed mood [facility]USAIN [place] [facility] [place] [facility] Plan of Treatment: Future Appointments (+ 6 months) and Future Tests (+/- 45 days) The Plan of Treatment section includes future care activities for the [facility] [place] [facility] This section includes future appointments and future orders which are active, pending or scheduled. Future Appointments This section includes appointments that were scheduled to occur 6 months from the date of the Encounter, up to a maximum of 20 appointments. The data comes from all [place] treatment facilities. Appointment Date/Time Appointment Type Appointme nt Facility Name Oct 08, 2024 09:00 AM AMBULATORY - PSYCHIATRY [facility] [place] [facility] Oct 13, 2024 09:00 AM AMBULATORY - PSYCHIATRY [facility] [place] [facility] Oct 13, 2024 10:00 AM AMBULATORY - PSYCHIATRY [facility] [place] [facility] Oct 22, 2024 09:00 AM AMBULATORY - PSYCHIATRY [facility] [place] [facility] Oct 25, 2024 11:00 AM AMBULATORY - PSYCHIATRY [facility] [place] [facility] Nov 03, 2024 10:00 AM AMBULATORY - MEDICINE [facility] [place] [facility] Nov 06, 2024 09:00 AM AMBULATORY - PSYCHIATRY [facility] [place] [facility] Nov 14, 2024 08:30 AM AMBULATORY - REHAB MEDICIN E [facility] [place] [facility] Nov 21, 2024 09:00 AM AMBULATORY - PSYCHIATRY [facility] [place] [facility] Feb 12, 2025 03:00 PM AMBULATORY - MEDICINE [facility] [place] [facility] Feb 12, 2025 03:30 PM AMBULATORY - MEDICINE [place] [facility] [place] [facility] Active, Pending, and Scheduled Orders This section includes a listing of several types of active, pending, and scheduled orders, including clinic medications orders, diagnostic test orders, procedure orders and consult orders; where the start date of the order is 45 days before the date of the Encounter or 45 days after the date of theEncounter. The data comes from all [place] treatment facilities. Test Date/Time Test Type Test Details Facility Name Oct 29, 2024 08:33 PM Consult Order COMMUNITY CARE-DENTAL GENERAL Cons Phonograph Needle Tip [facility] Nov 06, 2024 01:56 PM Consult Order SPEECH THERAPY/SWALLOWING EVAL OUTPT Cons Phonograph Needle Tip [facility] Social History: Smoking Status (Most current) and Tobacco Use (All prior to encounter date) This section includes the most current, and the historical, smoking and tobacco- related health factors from the [place] facility where the Encounter took place. Current Smoking Status This section includes the most current smoking, or tobacco-related health factor, from the [place] facility where the Encounter took place. Date/Time Current Smoking Status Comment Facil ity August 29, 2024 08:30 AM [place]-TOBACCO NEVER U SED CIGARETTES [facility] Tobacco Use History This section includes a history of the smoking, or tobacco-related health factors, that were collected on or before the date of the Encounter. The data comes from the [place] facility where the Encounter took place. Date/Time Smoking Status/Tobacco Use Comment F acility August 29, 2024 08:30 AM [facility]-TOBACCO NEVER U SED [facility] August 30, 2023 01:30 PM VA-TOBACCO [facility] August 30, 2023 01:30 PM VA-TOBACCO QUIT 15 YRS OR MORE [facility] May 17, 2022 01:15 PM VA-TOBACCO [facility] May 17, 2022 01:15 PM [place]-TOBACCO QUIT 5 TO < 15 YRS [facility] Advance Directives: All historical and current Section Date Range: From patient's date of to the date document was created. This section includes ALL of a patient's completed or amended [place] Advance and Rescinded Directives. The entries below indicate that a directive exists for the patient, but an actual copy is not included with this document. The data comes from all [place] facilities. Date Advance Directives Provider Source August 30, 2022 ADVANCE DIRECTIVE JOVANNYCARMENMILAGROSAMINATA BRENNAN ELD Nov 26, 2020 ADVANCE DIRECTIVE DISCUSSION DAVID CRUZ [facility] September 10, 2020 ADVANCE DIRECTIVE DISCUSSION Amy SARGENT [facility] September 10, 2020 ADVANCE DIRECTIVE DISCUSSION Amy SARGENT [facility] Jul 12, 2016 ADVANCE DIRECTIVE DISCUSSION MARKY HAILE [facility] Mar 17, 2016 ADVANCE DIRECTIVE DISCUSSION MANJEET BRADFORD [facility] Encounter Notes: All associated encounter notes This section contains the clinical notes associated to the Encounter. Date/Time Encounter Note(s) Provider Source Oct 04, 2024 12:25 PM MENTAL HEALTH CONSULT: LOCAL TITLE: CONSULT REPORT/NEUROPSYCHOLOGY STANDARD TITLE: MENTAL HEALTH CONSULT DATE OF NOTE: OCT 04, 2024@12:25 ENTRY DATE: OCT 04, 2024@12:25:30 AUTHOR: ELMA GUZMÁN COSIGNER: URGENCY: STATUS: COMPLETED NEUROPSYCHOLOGICAL EVALUATION Patient Name: JEAN LEVIN Date of : 1980 Age: 44 Sex: Male Ethnicity: / Handedness: Right Education: 14 Testing Information Date of Examination: 10/04/2024 (Part 1) REFFERAL: From Service: [facility] Requesting Provider: TORIN NORTON Provisional Diagnosis: Post-Traumatic Stress Disorder, Chronic(ICD-10-CM F43.12) Reason for consult request: [place] with a very particular communication style which includes long pauses, difficulty gathering thoughts, somewhat vague statements to questions and this is long-standing by looking at notes from other providers and does not get better the longer one knows him. Very unclear if this is related to cognitive deficits or personality style and think neuropsych testing and personality testing would be extremely helpful for getting some clarity on his presentation. ............................ ............................ ........................ TODAY'S ASSESSMENT SUMMARY: Today's session provides initial gathering without conclusion. Interview is presented in dialogue format here. Mental health tools results are listed. Cognitive scores for Language and Attention are listed. Further testing shall take place on a second date. Assessment conclusion shall be provided after that. ............................ ............................ ........................ TODAY'S INTERVIEW: Q: Any problems with thinking skills? A: Yes. Q: What are you observing in yourself? A: I don't know. 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 If I were to observe myself thinking, hmm. I don't know, some might say I take longer time to decide something, maybe. Q: What else? A: Thinking, thinking, hmm. Thinking, I don't know. It may be something along the lines, (smiles) like recently, in the last couple of years, I have been listening to podcasts. Usually you can speed it up. And I usually sometimes it's too fast. at least 1 1/2 to 2 times speed. As long as you can kind of understand most of it. I figure the faster you can go through it, maybe like finance or self-help, I am trying to learn, The more information, the faster, I can go through them, the more I can learn. Ever since I've been listening to it fast, and people talking fast, sometimes I stumble. Sometimes my brain is trying to talk faster than my mouth can. Q: Can keep up with? A: Yes, I've been talking faster, and it's almost kind of funny how your brain works. Q: You live with your aunt? A: Yes. Q: What language do you speak with your aunt? A: More Kuwaiti, we don't talk a lot. Some Sinhala. Q: Do you think in Kuwaiti, Sinhala, or both? A: (pause) Probably both. Q: At the same time? A: (long pause) Yeah, probably a mix, but probably more bulgarian ............................ ............................ ................... MENTAL HEALTH SCREENS: DEANDRE = 0 no adverse childhood experiences PHQ9 = 15 moderately severe depression PCL-5 = 45 PTSD above cutpoint CAROLEE = 18 moderately severe insomnia ............................ ............................ .................. LANGUAGE MODULE (from Neuropsychological Assessment Battery) Normative Sample: Demographically Corrected Sample Language Module Score Table Form 1 Score Raw Score z Score T Score Oral Production 20 -0.08 48 42%ile AVERAGE Auditory Comprehension 89 0.20 56 73%ile ABOVE AVERAGE Naming 29 -0.41 39 14%ile MILD IMPAIR. Writing 10 0.52 56 73%ile ABOVE AVERAGE Writing Legibility 50%ile Average Writing Spelling 50%ile Average Writing Syntax 50%ile Average Writing Conveyance 5%ile Mild-Mod Impair. ATTENTION MODULE (from Neuropsychological Assessment Battery) Attention Module Score Table Form 1 Score Raw Score z Score T Score Digits Forward 7 -0.47 40 16%ile BELOW AVERAGE Digits Backward 4 0.05 46 34%ile AVERAGE Dots 5 -0.05 42 21%ile AVERAGE Numbers & Letters Part A Efficiency 53 -1.88 20 <1%ile MOD-SEV IMPAIR. Numbers & Letters Part B Efficiency 34 -1.41 27 1%ile MODERATE IMPAIR. Numbers & Letters Part C Efficiency 29 -1.34 34 5%ile MILD-MOD IMPAIR. Numbers & Letters Part D Efficiency 26 -1.75 23 <1%ile MOD-SEV IMPAIR Part D Disruption 49 0.13 50 50%ile AVERAGE ............................ ............................ ................... End of Report ............................ ............................ ................... Diagnoses: Chronic post-traumatic stress disorder ([facility] [id number]) - Post-traumatic stress disorder, chronic (ICD-10-CM F43.12) (Primary) Adjustment disorder with mixed emotional features ([facility] [id number]) - Adjustment disorder with mixed anxiety and depressed mood (ICD-10-CM F43.23) Procedures: Neurobehav Status Exam,F2F w/ Pt,Int&Prep,1st hr Neurobehav Status Exam,F2F w/ Pt,Int&Prep,Ea Addl Hr /es/ ELMA GUZMÁN,PhD Neuropsychologist Signed: 10/20/2024 14:55 [facility]
--- NOTE | 2024-11-11 16:38 | A.OFFVIS_ITS ---
Vital Signs 11/11/24 16:41 Height 5 ft 11 in Weight 147 lb BMI 20.5 BP 101/60 Blood Pressure Location Lt brachial Position Sitting Pulse 67 Pulse Oximetry (%) 96 Oxygen Delivery Method Room Air Intake Visit Reasons: follow up [facility]IC Intake Note: Patient follow up for [facility] Paatient cc: constipation, denies any other GI issues. 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 We will escalate to the 290 micro g dose. He asks to be educated on IBS. ROV next available. Medications: New linaclotide (Linzess) 290 mcg PO QAM 30 caps 6RF 30 days TODAY'S VISIT The Linzess at all dosing levels this not made a significant difference in his symptoms set. He continues to have bloating and he feels that his appetite is severely limited because he is always feeling ?backed up. ? He also has difficulty gaining weight despite exercise. It is very difficult to assess because he seems to have some problems with self expression, however I think it gastric emptying study could be helpful in the differential diagnosis. I am also going to get a physician appointment to get a 2nd opinion since I am running out of ideas. He can always return to see me but I think his next visit should be with the physician. [facility] Medical History Hypothyroid Sleep apnea PTSD (post-traumatic stress disorder) Depression with anxiety Surgical History H/O colonoscopy S/P LASIK surgery of both eyes Family History Father Prostate cancer Social History Household Members: Family Household Members Other:: Aunt Alcohol intake: current Alcohol intake frequency: holidays/special occasions only Alcohol type: beer Patient Tobacco Use Status: Former Tobacco user Tobacco use type: Cigarette service: Yes Current occupational status: disabled Review of Systems Const Denies fatigue, Denies fever(s), Denies night sweats, Denies poor appetite and Denies weight loss ENT Reports Normal hearing present, Denies dental pain, Denies dysphagia, Denies hearing loss, Denies mouth pain, Denies odynophagia, Denies throat swelling, Denies tongue swelling and Reports other (Dentition adequate) Card Reports no additional complaints Resp Reports no additional complaints GI Details: Denies abdominal pain, Denies melena, Reports bloating, Denies hematochezia, Reports constipation, Denies GI cramping, Denies dysphagia, Denies excessive flatus, Reports early satiety, Denies heartburn, Denies diarrhea, Denies nausea, Denies odynophagia, Denies vomiting and Denies hematemesis Skin/Breast Denies pruritus, Denies lesions, Denies rash and Denies jaundice Neuro Reports Normal hearing present and Denies Abnormal speech present Endo Denies fatigue Aller/Immun Denies throat swelling and Denies tongue swelling Physical Exam Const General: cooperative, no acute distress, well developed and well groomed Nutritional Appearance: average body habitus and well nourished Orientation/consciousness: oriented to person, oriented to place and oriented to time Limitations: No language barrier and other limitations (Difficulty with self expression) HEENT Head: Yes normocephalic and Yes atraumatic Eyes General: appearance normal, both eyes and all related structures Pupils: Equal, round and reactive pupils present Neck Neck: Yes normal visual inspection and Yes no lymphadenopathy Thyroid: Thyroid normal Resp Effort & Inspection: normal respiratory effort and able to speak in complete sentences Auscultation: clear to auscultation bilaterally Cardio Rate: regular rate Rhythm: regular rhythm Heart sounds: Normal, physiologic split S2 sound present Peripheral pulses: radial pulses present and posterior tibial pulses present GI Inspection: No distended and No Abdominal panniculus present Palpation (GI): Soft to palpation, nontender, no guarding, not rigid and No hepatosplenomegaly present Percussion: Yes normal to percussion Auscultation: normal bowel sounds Rectal Exam - Male: Yes deferred Skin General skin exam: no rashes or lesions noted, turgor normal, skin not dry, no jaundice, No spider nevi and no striae Rashes: no rashes Nails: normal Neuro General: oriented to person, oriented to place and oriented to time Cranial nerves: Yes Equal, round and reactive pupils present and Yes Normal hearing present Speech: No Abnormal speech present Extrem General: Yes normal to inspection, No clubbing, No cyanosis and No edema Psych Appearance: grossly normal and well kempt Mental Status: mental status grossly normal Speech and movement: Normal speech and movement present Affect: normal affect Attitude: cooperative Thought process: Normal thought process present and not confabulating Thought content: Normal thought content present Insight: Limited insight present (Psych) Judgement: Limited judgement present (Psych) Assessment & Plan Assessment & Plan (1) Constipation: Code(s): K59.00 - Constipation, unspecified Category: Medical (2) Early satiety: Code(s): R68.81 - Early satiety Category: Medical Plan The Linzess at all dosing levels this not made a significant difference in his symptoms set. He continues to have bloating and he feels that his appetite is severely limited because he is always feeling ?backed up. ? He also has difficulty gaining weight despite exercise. It is very difficult to assess because he seems to have some problems with self expression, however I think it gastric emptying study could be helpful in the differential diagnosis. I am also going to get a physician appointment to get a 2nd opinion since I am running out of ideas. He can always return to see me but I think his next visit should be with the physician. Orders: Orders NM gastric emptying study Today R68.81 - Early satiety Coding Level of Care Code Est Pt Level 3 (51581) Diagnoses Constipation K59.00 Early satiety R68.81
[2024-11-11 16:41] VITALS: BP 101/60; PULSE 67; O2SAT 96; BMI 20.5
--- OUTSIDE RECORDS SUMMARY | 2024-11-11 16:51 | XMS_ITS | Clinical Summary ---
Author Organization [facility] it Address [address] [place] [address] Care Team Providers Care Database Dba Name Role Phone Stew Adams MD Primary Care Provider Allergies Active Allergy Reactions Criticality Noted Date Comments Tetracycline 06/19/2018 Other Reaction(s): OTHER Blisters Medications senna (SENOKOT) 8.6 mg tablet Take 1 tablet (8.6 mg total) by mouth 1 (one) time each day. 11/15/2023 Active psyllium husk, with sugar, (Fiber, psyllium husk-sugar,) 3.4 gram/7 gram powder Take by mouth. Active Active Problems Problem Noted Date Diagnosed Date Snoring 03/30/2020 Overview (04/25/2024): 02/2020 Diagnostic polysomnogram did not reveal TYSON or nocturnal hypoxia. Acne 07/10/2018 Depression 07/10/2018 Dermatophytosis 07/10/2018 Overview (04/25/2024): Toenails and feet: [place] connected @ [place] Eczema 07/10/2018 Overview (04/25/2024): Face and neck, Service connected [place] Seborrheic dermatitis 07/10/2018 Thyroid nodule 07/10/2018 Overview (04/25/2024): FNA 06/13/2018 benign follicular nodule Ichthyosis 07/10/2018 Overview (04/25/2024): legs Hypothyroidism 06/19/2018 Overview (04/25/2024): Viral thyroiditis dx 03/2017, Saw ENDO [facility] 04/01/2018, to follow up 03/2019 with them Immunizations Name Administration Dates Next Due Anthrax 07/02/2008, 8,10/21/2007,05/01 DTaP (Infanrix) 6wks to less than 7yo 06/22/2016 Hepatitis A Adult (Havrix; V aqta) 19yo and older 03/19/2006,07/26/2005,07/03/2005 Hepatitis B (Lluuzwu-Z-Fhmpr , Recombivax HB-Adult) 19yo and older 07/26/2005 IPV Inactivated polio (Ipol) 6wks and older 07/20/2005 Influenza Quadravalent, MDCK , 0.5ml, preservative free (Flucelvax) 6mo and older 01/01/2020 Influenza Quadravalent, MDCK , 0.5ml, with preservative (Flucelvax) 6mo and older 02/15/2022,01/24/2018 Influenza, Unspecified 02/27/2023 MMR, measles mumps and rubel la Live (Priorix; M-M-R II) 12mo and older 07/26/2005 Meningococcal Conjugate (Men veo) MenACWY 11yo to less than 19 yo 07/20/2005 Smallpox 05/01/2007 Td Tetanus diptheria (Tdvax) 7yo and older 07/20/2005 Typhoid VICPS (Typhim Vi) 2y o and older 06/25/2018,05/01/2007 Varicella live (Varivax) 12m o and older 07/26/2005 Surgical History Surgery Date Site/Laterality Comments OTHER SURGICAL HISTORY PROCEDURE: DENIES PREVIOUS SURGERY Medical History Medical History Date Comments Acne 07/10/2018 DX:Acne Depression 07/10/2018 DX:Depression Dermatophytosis 07/10/2018 DX:Dermatophytos is; COMMENT: Toenails and feet: [place] Eczema 07/10/2018 DX:Eczema; COMME NT: Face and neck, [place] connected [place] Hypothyroidism 06/19/2018 DX:Hypothyroidis m; COMMENT: Viral thyroiditis dx 03/2017, Saw ENDO [facility] 04/01/2018, to follow up 03/2019 with them Ichthyosis 07/10/2018 DX:Ichthyosis; C OMMENT: legs Seborrheic dermatitis 07/10/2018 DX:Seborrh eic dermatitis Thyroid nodule 07/10/2018 DX:Thyroid nodul e; COMMENT: FNA 06/13/2018 benign follicular nodule Family History Medical History Relation Name Comments Colon polyps Brother 1 No Known Problems Brother 2 No Known Problems Father Hypertension Mother Relation Name Status Comments Brother 1 Alive Brother 2 Alive Father Alive Mother Alive Social History Tobacco Use Types Packs/Day Years Used Date Smoking Tobacco: Former Cigarettes 0.2 13 0 06/19/1999 - 06/19/2012 Smokeless Tobacco: Never Alcohol Use Standard Drinks/Week Comments Yes 0 (1 standard drink = 0.6 oz pur e alcohol) Sex and Gender Information Value Date Recorded Sex Assigned at Not on file Legal Sex Male 10:33 PM EST Gender Identity Not on file Sexual Orientation Not on file Obstetrics History Last Filed Vital Signs Vital Sign Reading Time Taken Comments Blood Pressure 110/71 11/15/2023 9:02 AM EDT Pulse 58 11/15/2023 9:02 AM EDT Temperature - - Respiratory Rate - - Oxygen Saturation - - Inhaled Oxygen Concentration - - Weight 66.1 kg (145 lb 12.8 oz) 11/15/2023 9:02 AM EDT Height 180.3 cm (5' 11 ) 11/15/2023 9:02 AM EDT Body Mass Index 20.33 11/15/2023 9:02 AM EDT Plan of Treatment Upcoming Encounters Date Type Department Care Team (Late st Contact Info) Description 11/17/2024 9:00 AM EDT Office Visit Adult Medicine [facility] [address] [place] [address] Stew Adams MD [address] [place] [address] Health Maintenance Due Date Last Done Comments IPV Vaccines (2 of 3 - Adult catch-up series) 08/17/2005 07/20/2005 Hepatitis B Vaccines (2 of 3 - 19+ 3-dose series) 08/23/2005 07/26/2005 Colorectal Cancer Screening: Colonoscopy 11/27/2023 HIV Screening 11/27/2023 Social Influencers of Health Screening 11/27/2023 COVID-19 Vaccine ( season) 2023 Depression Screening 05/14/2024 05/14/2023 Influenza Vaccine (#1) 2024 3, 02/15/2022, 01/01/2020, Additional history exists DTaP,Tdap,and Td Vaccines (3 - Td or Tdap) 06/22/2026 06/22/2016, 07/20/2005 Cholesterol Screening (Lipid Panel) 05/14/2028 05/14/2023 Meningococcal ACWY Vaccine Aged Out 07/20/2005 N o longer eligible based on patient's age to complete this topic MMR Vaccines Aged Out 07/26/2005 No longer eligi ble based on patient's age to complete this topic Varicella Vaccines Aged Out 07/26/2005 No longer eligible based on patient's age to complete this topic Hepatitis A Vaccines Aged Out 03/19/2006, 07/26/2005, 07/03/2005 No longer eligible based on patient's age to complete this topic Hepatitis C Screening Completed 05/14/2023 HIB Vaccines Aged Out No longer eligi ble based on patient's age to complete this topic HPV Vaccines Aged Out No longer eligi ble based on patient's age to complete this topic Meningococcal B Vaccine Aged Out No l onger eligible based on patient's age to complete this topic Pneumococcal Vaccine: Pediatrics (0 to 5 Years) and At-Risk Patients (6 to 49 Years) Aged Out No longer eligible based on patient's age to complete this topic RSV Immunization Patients Under 20 months Aged Out No longer eligible based on patient's age to complete this topic Procedures Procedure Name Priority Date/Time Associated Diagnosis Comments HEPATITIS C SCREENING Routine 05/14/2023 DEPRESSION SCREENING Routine 05/14/2023 LIPID PANEL Routine 05/14/2023 from Last 3 Months or Most Recently Relevant to Health Maintenance Results * Depression Screening (05/14/2023) Depression Screening abstracted Historical Provider HEALTH MAINTENANCE Final Result * Hepatitis C Screening (05/14/2023) Hepatitis C Screening abstracted Historical Provider HEALTH MAINTENANCE Final Result * Lipid panel (05/14/2023) LDL/HDL Ratio 2 0 - 4 Triglycerides 119 0 - 150 mg/dL Cholesterol 156 0 - 200 mg/dL HDL 64 >=40 mg/dL LDL Cholesterol 69 0 - 100 mg/dL Blood Venous blood specimen / Unknown Historical Provider LAB BLOOD ORDERABLES Rody l Result from Last 3 Months or Most Recently Relevant to Health Maintenance Insurance [facility] [address] Care Teams Database Dba Relationship Specialty Start Date End Date Stew Admas MD [address] [place] [address] PCP - General 03/26/23
== END 2024-11-11 18:37 | disposition home or self-care (01) ==
PROVIDERS: PCP Internal Medicine; Visit Provider Nurse Practitioner
DX: K59.00 Constipation, unspecified (principal); R68.81 Early satiety
CPT/HCPCS: 99213

== ENCOUNTER → 2024-11-11 16:34 | Outpatient (BNVA) | payer OTHER, SELFPAY | PROVIDERS: PCP Internal Medicine; Visit Provider Nurse Practitioner | DX: R68.81 Early satiety (principal); K59.00 Constipation, unspecified | CPT/HCPCS: 99212 ==

== ENCOUNTER → 2024-12-16 08:29 | Outpatient (REF) | payer OTHER, SELFPAY ==
--- OUTSIDE RECORDS SUMMARY | 2012-05-24 11:40 | XMS_ITS | Continuity of Care Document ---
Author Organization [facility] Address [address] [place] [address] Phone Care Team Providers Care Photographer Assistant Name Role Phone Unavailable Unavailable Unavailable Allergies, Adverse Reactions, Alerts Substance Reaction Status Criticality tetracycline Active No Information minocycline HIVES Active No Information Medications Medication Instructions Dosage Effective Dates (start - stop) Status Comments diclofenac sodium 75 mg tablet,delayed release take 1 tablet (75MG) by oral route 2 times every day 75 MG - No Longer Active cephalexin 500 mg capsule take 1 capsule (500MG) by oral route every 6 hours for 7 days 500 MG - No Longer Active Xopenex HFA 45 mcg/Actuation Aerosol Inhaler inhale 2 puff (90MCG) by inhalation route every 6 hours 90 MCG - No Longer Active OR PROAIR OR VENTOLIN Phenergan-Dextrom ethorphan 6.25/15mg Oral ELIXIR - No Longer Active 2 TEASPOONS AT BEDTIME NEEDED FOR COUGH prednisone 20 mg Tab take 3 tablets by ORAL route daily x 2 days, then 2 tablets PO x 2 days, then 1 tablet daily x 2 days - No Longer Active Procedures Procedure Date Venipuncture Collection Of Blood 2012 Uric Acid, Blood Office/outpatient visit,est, low 2012 Office/outpatient visit,est, mod 2010 Office/outpatient visit,est, low 2010 Office/outpatient visit,new, low 2009 Advance Directives Directive Yes / No Effective Date File Name No Information Encounters Encounter Description Practice Location Reason(s) For Visit Diagnoses Date Provider Providers Copied on Encounter Office/outpat ient visit,[facility], [address], [place], [place], [id number], tel:[phone] [facility] [place] Urgent Care pain (chief complaint) PodagraIngrown toenail 3 No Information Office/outpat ient visit,[facility], [address], [place], [place], [id number], tel:[phone] [facility] cold symptoms (chief complaint) ACUTE URI NOSACUTE BRONCHITIS 1 Luci Raad. [address] [place], [place], [id number], [place]. tel:[phone] Office/outpat ient visit,[facility], [address], [place], [id number], tel:[phone] [facility] [place] Urgent Care skin growth/ bump (chief complaint) Mucosal vesicle 1 [address]. [address] [place], [address], [place]. tel:[phone] Office/outpat ient visit,[facility], [address], [place], [id number], tel:[phone] [facility] [place] Urgent Care pain, foot (chief complaint) Local skin infection 0 Ariela [address]es. [address] [place], [address], . tel:[phone] Family History Family Member Type Diagnosis Age At Onset No Information Payers Payer name Insurance type Covered alliance party ID Authoriza tion(s) No Information Social History Type Description Quantity Date Captured Comments Alcohol Use Details Unknown Caffeine Use Details Unknown Tobacco Use Status No Information Smoking Status Never smoker Non-Smoking Tobacco Use Details : No Details Available : No Details Available Sex Male Vital Signs Date / Time: Height Weight BMI Pulse Rate Blood Pressure Temperature Respiratory Rate Body Surface Area Head Circumference Head Circ. Percentile Wt./Kevin. Percentile BMI percentile Pulse Ox Inhaled Ox 4:14 PM 72.00 in 141.00 lbs 19.1 2 kg/m eter (2) 66 /min 96/59 mm[Hg] 98.10 F 20 /min 99 % 21 % Chief Complaint And Reason For Visit From encounter dated '05/24/2012 15:40'. pain (chief complaint) Reason For Referral Reason For Referral No Information Plan Of Treatment Date Type Action Status Goal Foot Exam. Due on 0 due History Of Present Illness Encounter Date Complaint History Of Prese nt Illness No Information Functional Status Date Functional Assessmen t No Information Instructions Date Instruction Additional Infor dakota Instructions for Back and Neck I njuries provided Related to Podagra Seek followup care i f symptoms persist, worsen, or new symptoms developSeek followup care if symp Related to Podagra Arrange earlier foll owup visit if symptoms worsen, new symptoms develop, or return to Urgent Care Related to Podagra Take medications as directed Rel ated to Podagra Assessments Type Assessment Date No Information Patient Care Teams Name Effective Dates (start - stop) Status Members No Information
--- NOTE | ~2024-12-16 | NM_ITS ---
EXAMINATION: IN RADIONUCLIDE SOLID FOOD GASTRIC EMPTYING 4-HOUR STUDY CLINICAL INFORMATION: R68.81 - Early satiety COMPARISON: There are no prior studies available for comparison. TECHNIQUE: A standard meal consisting of 4 oz of Egg Beaters brand tagged with 1.0 mCi Tc-99m Sulfur Colloid, 6 oz water and 2 slices of toast with jelly was administered orally to the patient. Images were obtained using a dual head gamma camera in the anterior and posterior projections over of the stomach immediately post ingestion and at hourly intervals up to 3 hours post ingestion. The anterior and posterior counts at each time interval were averaged using the geometric mean and expressed as percentage of the immediate post ingestion counts. FINDINGS: There is visualization of activity in the stomach immediately post ingestion. As the study progresses, there is clearance of activity from the stomach and visualization of progressively increasing small bowel activity. By the end of the study, there is almost no retention noted in the stomach. Retention in the stomach at each time interval was: 1 hour 54% (normal 37%-90%) 2 hours 17% (normal 30%-60%) 3 hours 0% IN/IN gastric emptying study IMPRESSION: Normal 3-hour solid food gastric emptying study. For solid meal, rapid gastric emptying is less than 30% at 60 minutes. Delayed gastric emptying criteria is more than 60% remaining at 120 minutes or more than 10% at 240 minutes. The 4-hour value is the best discriminator of a normal or abnormal result). Gastric emptying study grading per JNMT Consensus Recommendations in 2008 (https://tech.snmjournals.org/content/36/1/44) Grade 1 (mild retention): 11-20% at 4h Grade 2 (moderate retention): 21-35% at 4h Grade 3 (severe retention): 36-50% at 4h Grade 4 (very severe retention): >50% retention at 4h Electronically signed by: Ezequiel Oneal MD 12/16/2024 01:30 PM EDT
--- OUTSIDE RECORDS SUMMARY | 2024-12-16 09:13 | XMS_ITS ---
Author Name [facility] Organization Unknown Care Team Organization Name Specialty Phone Email Start Date End Da te [facility] NELLI SALINAS Primary Care 01/31/2023 12/17/2023 [facility] Jorge Jaramillo DO Primary Care 07/05/202211/28 [facility] NULL Primary Care 03/07/2022 12/17/2023
--- OUTSIDE RECORDS SUMMARY | 2024-12-16 09:13 | XMS_ITS | Clinical Summary ---
Author Organization [facility] [address] [place] [address] [place] [address] CARMEN Roberts [phone] Phone Care Team Providers Care Gum Sprayer Name Role Phone Stew Adams MD Primary Care Provider Allergies Active Allergy Reactions Criticality Noted Date Comments Tetracycline 06/19/2018 Other Reaction(s): OTHER Blisters Medications senna (SENOKOT) 8.6 mg tablet Take 1 tablet (8.6 mg total) by mouth 1 (one) time each day. 11/15/2023 Active psyllium husk, with sugar, (Fiber, psyllium husk-sugar,) 3.4 gram/7 gram powder Take by mouth. Active linaCLOtide (Linzess) 290 mcg capsule Take 1 capsule (290 mcg total) by mouth 1 (one) time each day. Active psyllium (METAMUCIL) powder Take 1 packet by mouth 2 (two) times a day. Active levothyroxine (SYNTHROID, LEVOTHROID) 25 mcg tablet Take 1 tablet (25 mcg total) by mouth 1 (one) time each day before breakfast. 90 each 1 11/18/2024 Active Active Problems Problem Noted Date Diagnosed Date Snoring 03/30/2020 Overview (04/25/2024): 02/2020 Diagnostic polysomnogram did not reveal TYSON or nocturnal hypoxia. Acne 07/10/2018 Depression 07/10/2018 Dermatophytosis 07/10/2018 Overview (04/25/2024): Toenails and feet: [facility] connected [facility] Eczema 07/10/2018 Overview (04/25/2024): Face and neck, Service connected @ [facility] Seborrheic dermatitis 07/10/2018 Thyroid nodule 07/10/2018 Overview (04/25/2024): FNA 06/13/2018 benign follicular nodule Ichthyosis 07/10/2018 Overview (04/25/2024): legs Hypothyroidism 06/19/2018 Overview (04/25/2024): Viral thyroiditis dx 03/2017, Saw ENDO [facility] 04/01/2018, to follow up 03/2019 with them Encounters Date Type Department Care Team Description 11/28/2024 Telephone Adult Medicine [address] [phone] Stew Adams MD Immunizations 11/18/2024 Telephone Adult Medicine [address] [phone] Stew Adams MD 11/18/2024 Telephone Adult Medicine [address] [phone] Stew Adams MD 11/17/2024 9:00 AM EDT Office Visit Adult Medicine [address] [phone] Stew Adams MD Adult general medical examination (Primary Dx); Depression screening negative; Subclinical hypothyroidism; Screening for lipid disorders; Screening for endocrine, metabolic and immunity disorder from Last 3 Months Immunizations Name Administration Dates Next Due Anthrax 07/02/2008, 8,10/21/2007,05/01 DTaP (Infanrix) 6wks to less than 7yo 06/22/2016 Hepatitis A Adult (Havrix; V aqta) 19yo and older 03/19/2006,07/26/2005,07/03/2005 Hepatitis B (Uupxyfe-Y-Belta , Recombivax HB-Adult) 19yo and older 07/26/2005 IPV Inactivated polio (Ipol) 6wks and older 07/20/2005 Influenza Quadravalent, MDCK , 0.5ml, preservative free (Flucelvax) 6mo and older 01/01/2020 Influenza Quadravalent, MDCK , 0.5ml, with preservative (Flucelvax) 6mo and older 02/15/2022,01/24/2018 Influenza Quadrivalent, 0.5m l, preservative free (Fluarix; FluLaval; Fluzone) ages 6mo and older (Afluria) 3yo and older 02/15/2022,01/24/2018 Influenza trivalent, 0.5mL, preservative free (Fluarix; FluLaval; Fluzone) ages 6mo and older (Afluria) 3 years and older 02/06/2024 Influenza, Unspecified 02/27/2023 MMR, measles mumps and [...] COMMENT: [facility]: [facility] 07/10/2018 DX:Eczema; COMME NT: Face and neck, [facility] Hypothyroidism 06/19/2018 DX:Hypothyroidis m; COMMENT: Viral thyroiditis dx 03/2017, Saw [facility] 04/01/[place], to follow up 03/2019 with them [...] 0 06/19/1999 - 06/19/2012 Smokeless Tobacco: Never Tobacco Cessation:Counseling Given: Not Answered Alcohol Use Standard Drinks/Week Comments Yes 0 (1 standard drink = 0.6 oz pur e alcohol) Sex and Gender Information Value Date Recorded Sex Assigned at Not on file Legal Sex Male 10:33 PM EST Gender Identity Not on file Sexual Orientation Not on file Obstetrics History Last Filed Vital Signs Vital Sign Reading Time Taken Comments Blood Pressure 114/69 11/17/2024 8:57 AM EDT Pulse 62 11/17/2024 8:57 AM EDT Temperature 36.8 C (98.3 F) 11/17/2024 8:57 AM EDT Respiratory Rate - - Oxygen Saturation - - Inhaled Oxygen Concentration - - Weight 68 kg (150 lb) 11/17/2024 8:57 AM EDT Height 180.3 cm (5' 11 ) 11/17/2024 8:57 AM EDT Body Mass Index 20.92 11/17/2024 8:57 AM EDT Plan of Treatment Upcoming Encounters Date Type Department Care Team (Late st Contact Info) Description 11/23/2025 9:00 AM EDT Office Visit Adult Medicine [facility] [address] [place], [place] [phone] Stew Adams MD [address] [place] [address] Health Maintenance Due Date Last Done Comments COVID-19 Vaccine ( season) 2023 04/15/2021, 04/05/2021, 09/09/2020, Additional history exists Depression Screening 04/30/2024 05/14/2023 Influenza Vaccine (#1) 2024 4, 03/05/2023, 02/27/2023, Additional history exists Social Influencers of Health Screening 11/17/2025 11/17/2024 Cholesterol Screening (Lipid Panel) 11/17/2029 11/17/2024, 05/14/2023 DTaP,Tdap,and Td Vaccines (6 - Td or Tdap) 11/02/2030 11/02/2020, 06/22/2016, 06/22/2016, Additional history exists Colorectal Cancer Screening: Colonoscopy 01/03/2034 01/04/2024, 01/04/2024 IPV Vaccines Discontinued 07/20/2005 Meningococcal ACWY Vaccine Aged Out 07/20/2005, No longer eligible based on patient's age to complete this topic Hepatitis B Vaccines Discontinued 07/26/2005 MMR Vaccines Aged Out 07/26/2005, 07/03/2005 No lo nger eligible based on patient's age to complete [...] on patient's age to complete this topic HIV Screening Discontinued HPV Vaccines Aged Out No longer eligi [...] Procedure Name Priority Date/Time Associated Diagnosis Comments TRIIODOTHYRONINE FREE Routine 11/17/2024 9:59 AM EDT Subclinical hypothyroidism FREE THYROXINE WITH REFLEX TO FREE TRIIODOTHYRONINE Routine 11/17/2024 9:59 AM EDT Subclinical hypothyroidism INTERFERON GAMMA INTERPRETATION Routine 11/17/2024 9:59 AM EDT Screening for endocrine, metabolic and immunity disorder INTERFERON GAMMA ANTIGEN 2 Routine 11/17/2024 9:59 AM EDT Screening for endocrine, metabolic and immunity disorder INTERFERON GAMMA ANTIGEN 1 Routine 11/17/2024 9:59 AM EDT Screening for endocrine, metabolic and immunity disorder INTERFERON GAMMA MITOGEN Routine 11/17/2024 9:59 AM EDT Screening for endocrine, metabolic and immunity disorder INTERFERON GAMMA NIL Routine 11/17/2024 9:59 AM EDT Screening for endocrine, metabolic and immunity disorder CBC WITH AUTO DIFFERENTIAL Routine 11/17/2024 9:59 AM EDT Subclinical hypothyroidism THYROID STIMULATING HORMONE WITH REFLEX TO FREE T4 AND FREE T3 Routine 11/17/2024 9:59 AM EDT Subclinical hypothyroidism LIPID PANEL WITH REFLEX TO DIRECT LDL Routine 11/17/2024 9:59 AM EDT Screening for lipid disorders RUBEOLA ANTIBODY IGG Routine 11/17/2024 9:59 AM EDT Screening for endocrine, metabolic and immunity disorder MUMPS ANTIBODY IGG Routine 11/17/2024 9: 59 AM EDT Screening for endocrine, metabolic and immunity disorder RUBELLA ANTIBODY IGG Routine 11/17/2024 9:59 AM EDT Screening for endocrine, metabolic and immunity disorder VARICELLA ZOSTER ANTIBODY IGG Routine 11/17/2024 9:59 AM EDT Screening for endocrine, metabolic and immunity disorder INTERFERON GAMMA FOR TB, QUALITATIVE Routine 11/17/2024 9:59 AM EDT Screening for endocrine, metabolic and immunity disorder HEPATITIS B SURFACE ANTIBODY Routine 11/17/2024 9:59 AM EDT Screening for endocrine, metabolic and immunity disorder CBC AND DIFFERENTIAL Routine 11/17/2024 9:59 AM EDT Subclinical hypothyroidism COMPREHENSIVE METABOLIC PANEL Routine 11/17/2024 9:59 AM EDT Subclinical hypothyroidism EXTERNAL COLONOSCOPY REPORT Routine 01/04/2024 4:04 PM EDT HM DEPRESSION SCREENING Routine 05/14/2023 HEPATITIS C SCREENING Routine 05/14/2023 from Last 3 Months or Most Recently Relevant to Health Maintenance Results * Interferon gamma interpretation (11/17/2024 9:59 AM EDT) [facility] Signature Quantiferon Plus Interpretation Negative Negative LAB CHEMISTRY METHOD 11/18/2024 9:19 AM EDT [facility] Blood Venous blood specimen / Unknown Venipuncture / Unknown 11/17/2024 9:59 AM EDT 11/17/2024 9:59 AM EDT Stew Adams MD LAB BLOOD ORDERABLES F inal Result [facility] [address] [place] [address], * Interferon gamma antigen 2 (11/17/2024 9:59 AM EDT) Blood Venous blood specimen / Unknown Venipuncture / Unknown 11/17/2024 9:59 AM EDT 11/17/2024 9:59 AM EDT Stew Adams MD LAB BLOOD ORDERABLES F inal Result Performing Organization Address City/[facility]/ZIP Co de Phone Number [facility] [address] [place] [address], [place] [phone] * Interferon gamma antigen 1 (11/17/2024 9:59 AM EDT) Blood Venous blood specimen / Unknown Venipuncture / Unknown 11/17/2024 9:59 AM EDT 11/17/2024 9:59 AM EDT us Stew Adams MD LAB BLOOD ORDERABLES F inal Result Performing Organization Address City/[facility]/ZIP Co de Phone Number [facility] [address] [place] [address], [place] [phone] * Interferon gamma mitogen (11/17/2024 9:59 AM EDT) Blood Venous blood specimen / Unknown Venipuncture / Unknown 11/17/2024 9:59 AM EDT 11/17/2024 9:59 AM EDT us Stew Adams MD LAB BLOOD ORDERABLES F inal Result Performing Organization Address [facility] Co de Phone Number [facility] [address] [place] [address], [place] [phone] * Interferon gamma NIL (11/17/2024 9:59 AM EDT) Blood Venous blood specimen / Unknown Venipuncture / Unknown 11/17/2024 9:59 AM EDT 11/17/2024 9:59 AM EDT us Stew Adams MD LAB BLOOD ORDERABLES F inal Result Performing Organization Address [facility] de Phone Number [facility] [address] [place] [address], [place] [phone] * (ABNORMAL) Thyroid stimulating hormone with reflex to free t4 and free t3 (11/17/2024 9:59 AM EDT) [facility] Signature TSH 6.20(H) 0.40 - 4.00 mcIU/mL LAB CHEMISTRY METHOD 11/17/2024 3:16 PM EDT [facility] Blood Venous blood specimen / Unknown Venipuncture / Unknown 11/17/2024 9:59 AM EDT 11/17/2024 9:59 AM EDT us Stew Adams MD LAB BLOOD ORDERABLES F inal Result Performing Organization Address [facility]/ZIP Co de Phone Number [facility] [address] [place] [address], [place] [phone] * Free thyroxine with reflex to free triiodothyronine (11/17/2024 9:59 AM EDT) [facility] Free T4 1.09 0.70 - 1.80 ng/dL LAB CHEMISTRY METHOD 11/17/2024 5:54 PM EDT [facility] Blood Venous blood specimen / Unknown Venipuncture / Unknown 11/17/2024 9:59 AM EDT 11/17/2024 9:59 AM EDT us Stew Adams MD LAB BLOOD ORDERABLES F inal Result Performing Organization Address [facility] de Phone Number [facility] [address] [place] [address], [place] [phone] * Lipid panel with reflex to direct LDL (11/17/2024 9:59 AM EDT) [facility] Cholesterol 146 0 - 200 mg/dL LAB CHEMISTRY METHOD 11/17/2024 1:47 PM EDT [facility] Triglycerides 52 0 - 150 mg/dL LAB CHEMISTRY METHOD 11/17/2024 1:47 PM EDT [facility] HDL 71 >=40 mg/dL LAB CHEMISTRY METHOD 11/17/2024 1:47 PM EDT [facility] LDL Calculated 65 0 - 100 mg/dL LAB CHEMISTRY METHOD 11/17/2024 1:47 PM EDT [facility] VLDL Cholesterol Ravi 10.4 mg/dL LAB CHEMISTRY METHOD 11/17/2024 1:47 PM EDT [facility] Non HDL Chol. (LDL+VLDL) 75 <145 mg/dL LAB CHEMISTRY METHOD 11/17/2024 1:47 PM EDT [facility] Chol/HDL Ratio 2.1 0.0 - 4.4 LAB CHEMISTRY METHOD 11/17/2024 1:47 PM EDT [facility] Blood Venous blood specimen / Unknown Venipuncture / Unknown 11/17/2024 9:59 AM EDT 11/17/2024 9:59 AM EDT us Stew Adams MD LAB BLOOD ORDERABLES F inal Result [facility] [address] [place] [address], [place] [phone] * (ABNORMAL) CBC auto differential (11/17/2024 9:59 AM EDT) WBC 4.4(L) 4.8 - 10.8 K/mcL LAB HEMETOLOGY METHOD 11/17/2024 12:51 PM EDT [facility] RBC 4.70 4.50 - 5.50 M/mcL LAB HEMETOLOGY METHOD 11/17/2024 12:51 PM EDT [facility] Hemoglobin 15.0 13.5 - 17.5 g/dL LAB HEMETOLOGY METHOD 11/17/2024 12:51 PM EDT [facility] Hematocrit 44.4 42.0 - 54.0 % LAB HEMETOLOGY METHOD 11/17/2024 12:51 PM EDT [facility] MCV 94.1 79.0 - 98.0 FL LAB HEMETOLOGY METHOD 11/17/2024 12:51 PM EDT [facility] MCH 31.8 27.0 - 32.0 pcg LAB HEMETOLOGY METHOD 11/17/2024 12:51 PM EDT [facility] MCHC 33.8 32.0 - 37.0 g/dL LAB HEMETOLOGY METHOD 11/17/2024 12:51 PM [facility] RDW 12.3 11.0 - 15.0 % LAB HEMETOLOGY METHOD 11/17/2024 12:51 PM [facility] Platelets 182 130 - 400 K/mcL LAB HEMETOLOGY METHOD 11/17/2024 12:51 PM [facility] MPV 10.7 7.0 - 11.0 FL LAB HEMETOLOGY METHOD 11/17/2024 12:51 PM [facility] NRBC 0.0 <1.0 % LAB HEMETOLOGY METHOD 11/17/2024 12:51 PM [facility] NRBC Absolute 0.00 <0.10 K/mcL LAB HEMETOLOGY METHOD 11/17/2024 12:51 PM [facility] Neutrophils Relative 62.2 % LAB HEMETOLOGY METHOD 11/17/2024 12:51 PM [facility] Lymphocytes Relative 25.5 % LAB HEMETOLOGY METHOD 11/17/2024 12:51 PM [facility] Monocytes Relative 7.9 % LAB HEMETOLOGY METHOD 11/17/2024 12:51 PM [facility] Eosinophils Relative 3.4 % LAB HEMETOLOGY METHOD 11/17/2024 12:51 PM [facility] Basophils Relative 0.5 % LAB HEMETOLOGY METHOD 11/17/2024 12:51 PM [facility] Immature Granulocytes Relative 0.5 % LAB HEMETOLOGY METHOD 11/17/2024 12:51 PM [facility] Neutrophils Absolute 2.77 1.50 - 7.00 K/mcL LAB HEMETOLOGY METHOD 11/17/2024 12:51 PM [facility] Lymphocytes Absolute 1.13 1.00 - 5.00 K/mcL LAB HEMETOLOGY METHOD 11/17/2024 12:51 PM EDT [facility] Monocytes Absolute 0.35 0.20 - 1.00 K/[facility] LAB HEMETOLOGY METHOD 11/17/2024 12:51 PM EDT [facility] Eosinophils Absolute 0.15 0.00 - 0.50 K/[facility] LAB HEMETOLOGY METHOD 11/17/2024 12:51 PM EDT [facility] Basophils Absolute 0.02 0.00 - 0.20 K/[facility] LAB HEMETOLOGY METHOD 11/17/2024 12:51 PM EDT [facility] Immature Granulocytes Absolute 0.02 0.00 - 0.03 K/[facility] LAB HEMETOLOGY METHOD 11/17/2024 12:51 PM EDT [facility] Blood Venous blood specimen / Unknown Venipuncture / Unknown 11/17/2024 9:59 AM EDT 11/17/2024 9:59 AM EDT us Stew Adams MD LAB BLOOD ORDERABLES F inal Result [facility] [address] [place] [address], * Rubeola antibody IgG (11/17/2024 9:59 AM EDT) Rubeola IgG Positive Positive LAB CHEMISTRY METHOD 11/17/2024 1:10 PM EDT [facility] Rubeola IgG Antibody, measured >300.00 >=16.50 AU/mL LAB CHEMISTRY METHOD 11/17/2024 1:10 PM EDT [facility] Blood Venous blood specimen / Unknown Venipuncture / Unknown 11/17/2024 9:59 AM EDT 11/17/2024 9:59 AM EDT Narrative [facility] - 11/17/2024 1:10 PM EDT Interpretation >=16.5 AU/ml is considered to be consistent with Immunity us Stew Adams MD LAB BLOOD ORDERABLES F inal Result Performing Organization Address [facility]/ZIP Co de Phone Number [facility] [address] [place] [address], [place] [phone] * Rubella antibody IgG (11/17/2024 9:59 AM EDT) Pathologist [facility] Rubella IgG Quant 47.5 >=10.0 I Unit/mL LAB CHEMISTRY METHOD 11/17/2024 2:41 PM EDT [facility] Rubella IgG Antibody Interp Positive Positive LAB CHEMISTRY METHOD 11/17/2024 2:41 PM EDT [facility] Blood Venous blood specimen / Unknown Venipuncture / Unknown 11/17/2024 9:59 AM EDT 11/17/2024 9:59 AM EDT Stew Adams MD LAB BLOOD ORDERABLES F inal Result Performing Organization Address City/[facility]/ZIP Co de Phone Number [facility] [address] [place] [address], [place] [phone] * (ABNORMAL) Hepatitis B surface antibody (11/17/2024 9:59 AM EDT) Pathologist [facility] Hepatitis B Surface Ab Positive (A) Negative LAB CHEMISTRY METHOD 11/17/2024 2:31 PM EDT [facility] Hepatitis B Surface Ab Quantitative 14.3 mIU/mL LAB CHEMISTRY METHOD 11/17/2024 2:31 PM EDT [facility] Blood Venous blood specimen / Unknown Venipuncture / Unknown 11/17/2024 9:59 AM EDT 11/17/2024 9:59 AM EDT Narrative [facility] - 11/17/2024 2:31 PM EDT >=10 mIU/mL is considered to be consistent with immunity. us Stew Adams MD LAB BLOOD ORDERABLES F inal Result Performing Organization Address City/[facility] Co de Phone Number [facility] [address] [place] [address], [place] [phone] * Varicella zoster antibody IgG (11/17/2024 9:59 AM EDT) Varicella IgG Positive Positive LAB CHEMISTRY METHOD 11/17/2024 1:10 PM EDT [facility] Varicella Zoster IgG 21.20 >=1.00 S/CO LAB CHEMISTRY METHOD 11/17/2024 1:10 PM EDT [facility] Blood Venous blood specimen / Unknown Venipuncture / Unknown 11/17/2024 9:59 AM EDT 11/17/2024 9:59 AM EDT Narrative [facility] - 11/17/2024 1:10 PM EDT Interpretation >= 1.00 S/CO is considered to be consistent with Immunity us Stew Adams MD LAB BLOOD ORDERABLES F inal Result Performing Organization Address [facility] Co de Phone Number [facility] [address] [place] [address], [place] [phone] * Mumps antibody IgG (11/17/2024 9:59 AM EDT) Mumps IgG Positive Positive LAB CHEMISTRY METHOD 11/17/2024 1:10 PM EDT [facility] Mumps IgG Antibody, measured 281.0 >=11.0 AU/mL LAB CHEMISTRY METHOD 11/17/2024 1:10 PM EDT [facility] Blood Venous blood specimen / Unknown Venipuncture / Unknown 11/17/2024 9:59 AM EDT 11/17/2024 9:59 AM EDT Narrative [facility] - 11/17/2024 1:10 PM EDT >=11 AU/mL is considered to be consistent with Immunity. us Stew Adams MD LAB BLOOD ORDERABLES F inal Result Performing Organization Address [facility]/ZIP Co de Phone Number [facility] [address] [place] [address], [place] [phone] * Triiodothyronine free (11/17/2024 9:59 AM EDT) T3, Free 329 230 - 420 pcg/dL LAB CHEMISTRY METHOD 11/17/2024 7:49 PM EDT [facility] Blood Venous blood specimen / Unknown Venipuncture / Unknown 11/17/2024 9:59 AM EDT 11/17/2024 9:59 AM EDT us Stew Adams MD LAB BLOOD ORDERABLES F inal Result Performing Organization Address [facility] Co de Phone Number [facility] [address] [place] [address], [place] [phone] * Comprehensive metabolic panel (11/17/2024 9:59 AM EDT) Pathologist [facility] Sodium 139 133 - 145 mmol/L LAB CHEMISTRY METHOD 11/17/2024 1:47 PM EDT [facility] Potassium 4.3 3.5 - 5.5 mmol/L LAB CHEMISTRY METHOD 11/17/2024 1:47 PM EDT [facility] Chloride 105 96 - 110 mmol/L LAB CHEMISTRY METHOD 11/17/2024 1:47 PM EDT [facility] CO2 31 21 - 32 mmol/L LAB CHEMISTRY METHOD 11/17/2024 1:47 PM EDT [facility] Anion Gap 3 3 - 11 LAB CHEMISTRY METHOD 11/17/2024 1:47 PM EDT [facility] Glucose 87 70 - 100 mg/dL LAB CHEMISTRY METHOD 11/17/2024 1:47 PM [facility] BUN 18 5 - 25 mg/dL LAB CHEMISTRY METHOD 11/17/2024 1:47 PM [facility] Creatinine 1.24 0.70 - 1.30 mg/dL LAB CHEMISTRY METHOD 11/17/2024 1:47 PM [facility] eGFR 73 >=60 mL/min/1. 73m2 LAB CHEMISTRY METHOD 11/17/2024 1:47 PM [facility] Comment:Calculation based on the Chronic Kidney Disease Epidemiology Collaboration (CKD-EPI) equation refit without adjustment for race. BUN/Creatinine Ratio 14.5 LAB CHEMISTRY METHOD 11/17/2024 1:47 PM [facility] Calcium 9.3 8.5 - 10.5 mg/dL LAB CHEMISTRY METHOD 11/17/2024 1:47 PM [facility] AST (SGOT) 21 10 - 42 unit/L LAB CHEMISTRY METHOD 11/17/2024 1:47 PM [facility] ALT (SGPT) 28 10 - 60 unit/L LAB CHEMISTRY METHOD 11/17/2024 1:47 PM [facility] Alkaline Phosphatase 74 42 - 121 unit/L LAB CHEMISTRY METHOD 11/17/2024 1:47 PM [facility] Total Protein 7.3 6.0 - 8.0 g/dL LAB CHEMISTRY METHOD 11/17/2024 1:47 PM [facility] Albumin 4.0 3.2 - 5.0 g/dL LAB CHEMISTRY METHOD 11/17/2024 1:47 PM [facility] Total Bilirubin 0.6 0.0 - 1.4 mg/dL LAB CHEMISTRY METHOD 11/17/2024 1:47 PM [facility] Blood Venous blood specimen / Unknown Venipuncture / Unknown 11/17/2024 9:59 AM EDT 11/17/2024 9:59 AM EDT Stew Adams MD LAB BLOOD ORDERABLES F inal Result [facility] [address] [place] [address], [place] [phone] * External Colonoscopy Report (01/04/2024 4:04 PM EDT) Anatomical Region Laterality Modality Endoscopy Historical Provider GI~PROCEDURE ORDERABLES F inal Result * Depression Screening (05/14/2023) Depression Screening abstracted Result [facility] Historical Provider HEALTH MAINTENANCE Final Result * Hepatitis C Screening (05/14/2023) Hepatitis C Screening abstracted Historical Provider HEALTH MAINTENANCE Final Result from Last 3 Months or Most Recently Relevant to Health Maintenance Insurance [employer] Care Teams Gum Sprayer Relationship Specialty Start Date End Date Stew Adams MD [address] [address] PCP - General 03/26/23
== END ==
LOC: HO.NUCMED 08:29
PROVIDERS: Visit Provider Nurse Practitioner
DX: R68.81 Early satiety (principal)
CPT/HCPCS: 78264; A9541

== ENCOUNTER → 2024-12-16 08:31 | Outpatient (BNV) | payer OTHER, SELFPAY | PROVIDERS: Visit Provider Radiology Diagnostic Radiology | DX: R68.81 Early satiety (principal) | CPT/HCPCS: 78264 ==

== ENCOUNTER 2024-12-22 07:32 | Outpatient (AMB) | payer OTHER, SELFPAY ==
[2024-12-22 07:37] VITALS: BP 90/52; PULSE 64; O2SAT 98; BMI 20.6
--- NOTE | 2024-12-22 07:37 | A.OFFVIS_ITS ---
Vital Signs 12/22/24 07:37 Height 5 ft 11 in Weight 148 lb BMI 20.6 BP 90/52 L Blood Pressure Location Lt brachial Position Sitting Pulse 64 Pulse Oximetry (%) 98 Oxygen Delivery Method Room Air Intake Visit Reasons: 2nd opinion by Grisel/LEONARD Intake Note: Patient 2nd opinion by Grisel/LEONARD. Patient cc: abdominal bloating after eating, and constipation and denies any other GI issues. Seam Feller Required: No Accompanied by: Self / Same As Patient Allergies Tetracyclines Allergy (Severe, Verified 11/11/24 16:37) urticaria minocycline Allergy (Unknown, Verified 11/11/24 16:37) Unknown Medication List - Last Reconciled 12/22/24 by Rosa Isela Kent MD ketoconazole 2% 1 appl topical BID ketoconazole 2% 1 appl topical 2XW levothyroxine (Synthroid) 25 mcg PO DAILY multivitamin 1 tab PO DAILY psyllium 1 tbsp PO BID selenium sulfide 2.25% 1 appl topical DAILY 7 days HPI HPI 2nd opinion by Grisel/LEONARD: Details: GI clinic visit for this 44 YM referred by Grisel Moss NP for a 2nd opinion for evaluation of chronic idiopathic constipation. TODAY'S VISIT: Pt complains of chronic constipation x 15 yrs He was in [employer] - started when he joined the [employer] Has a BM every 3-4 days usually with passage of hard stools (sometimes has pellet like stool) associated with straining. Complains of gas and bloating with visible abdominal distension. Complains of difficulty expelling the stool Denies rectal bleeding Eats two meals a day - unsure about his fibre intake - eats vegetables He was taking psyllium powder until a few weeks - did'nt help Patient denies symptoms of heartburn, dysphagia, nausea, vomiting, change in appetite or weight. Patient denies major cardiac or pulmonary problems, loud snoring or sleep apnea Denies problems with anesthesia in the past. Denies being on chronic anticoagulation. He has failed senna, dulcolax, miralax, magnesium and Linzess 290 mcg daily, Not working at present His older brother had polyps. LABS IN [facility] : Reviewed IMAGING STUDIES: 12/16/24 GASTRIC EMPTYING STUDY SHOWED: 1 hour 54% (normal 37%-90%) 2 hours 17% (normal 30%-60%) 3 hours 0% IMPRESSION: Normal 3-hour solid food gastric emptying study. ENDOSCOPIC STUDIES: 12/2023 [address] RAHMAN: Findings: Mucosa: Normal to cecum. Protruding lesions:. * Small internal hemorrhoids without stigmata of recent bleeding. The procedure was somewhat difficult due to redundant colon kelly in sigmoid and transverse colon sections. Impression: 1. Normal colon mucosa 2. Redundant colon 3. Internal hemorrhoids Recommendations: - Given longstanding complaint of constipation and atypical a tortuous colon on scope today, recommend barium enema for redundant colon - Repeat colonoscopy in 10 years for asymptomatic colorectal cancer screening PAST GI HISTORY BY REVIEW OF MEDICAL RECORDS: Pt has been followed by Grisel Moss since 07/2023: He did not think he was referred for a colonoscopy, he is concerned about chronic constipation. He will go 3-4 days w/o a BM. He will have intermittent bloating and some left sided pain with he is very backed up. This has been a problem for years. He admits he does not drink enough he has 1c coffee in the am ant then just water, no soda. No extreme ETOH. He eats alot of fruits and veggies. He does take a fiber supplement. He is supposed to take it bid but frequently fogets the second dose. He has no real experience with OTC laxative. No upper GI sx and not RB, he has a hard time gaining weight but he has not been losing weight. He has not been on thyroid medications for a couple of years, he says his doctors stopped the medications because it went back to normal. He has never seen an supervisor forming department. He has intermittent episodes of a rash on the trunk that is red but not raised. He does not what sets it off adn he has not mentioned this to other providers. This happens about once every 2 weeks. This occurs mostly at night. Bilirubin is not elevated. He has TYSON and denies any other cardiac or respiratory problems. He is naive to anesthesia and sedation. ROV 4 weeks. Trial Senna. 10/2024 LAST SEEN BY GRISEL MOSS NP: The Linzess at all dosing levels this not made a significant difference in his symptoms set. He continues to have bloating and he feels that his appetite is severely limited because he is always feeling ?backed up. ? He also has difficulty gaining weight despite exercise. It is very difficult to assess because he seems to have some problems with self expression, however I think it gastric emptying study could be helpful in the differential diagnosis. I am also going to get a physician appointment to get a 2nd opinion since I am running out of ideas. He can always return to see me but I think his next visit should be with the physician. [facility] Medical History Hypothyroid Sleep apnea PTSD (post-traumatic stress disorder) Depression with anxiety Surgical History H/O colonoscopy S/P LASIK surgery of both eyes Family History Father Prostate cancer Social History Household Members: Family Household Members Other:: Aunt Alcohol intake: current Alcohol intake frequency: holidays/special occasions only Alcohol type: beer Patient Tobacco Use Status: Former Tobacco user Tobacco use type: Cigarette service: Yes Current occupational status: disabled Review of Systems Const All systems reviewed & are unremarkable except as noted in HPI and below Physical Exam Vital Signs: Last Vital Signs Pulse 64 12/22/24 07:37 BP 90/52 L 12/22/24 07:37 Pulse Ox 98 12/22/24 07:37 Oxygen Delivery Method Room Air 12/22/24 07:37 BMI result Body Mass Index 20.6 Const General: healthy appearing and no acute distress Nutritional Appearance: average body habitus Orientation/consciousness: patient oriented x3 Limitations: no limitations HEENT Head: Yes normal to inspection Ears: hearing grossly normal bilaterally Mouth: Normal oral and palatal mucosa present Eyes Sclerae: sclerae normal Pupils: Equal, round and reactive pupils present Neck Neck: Yes normal visual inspection Chest Chest palpation & inspection: normal inspection of the chest Resp Effort & Inspection: normal respiratory effort Auscultation: clear to auscultation bilaterally Cardio Palpation: normal PMI Rate: regular rate Rhythm: regular rhythm Heart sounds: S1 normal heart sound present, S2 normal heart sound present and no murmurs GI Palpation (GI): Soft to palpation, nontender and No hepatosplenomegaly present Auscultation: normal bowel sounds Rectal Exam - Male: Yes deferred Skin General skin exam: no rashes or lesions noted Neuro General: patient oriented x3, gait normal and moves all extremities Cranial nerves: Yes Equal, round and reactive pupils present Psych Appearance: grossly normal Mental Status: mental status grossly normal Assessment & Plan Assessment & Plan (1) Constipation: Code(s): K59.00 - Constipation, unspecified Category: Medical (2) Hypothyroid: Code(s): E03.9 - Hypothyroidism, unspecified Category: Medical (3) Constipation: Code(s): K59.00 - Constipation, unspecified Category: Medical (4) Early satiety: Code(s): R68.81 - Early satiety Category: Medical Plan 44 YM with hypothyroidism, TYSON, PTSD seen for a 2nd opinion for evaluation of chronic constipation, early satiety (Normal GES), gas and bloating Complains of difficulty expelling the stool He was taking psyllium powder until a few weeks - did'nt help Chronic constipation likely slow transit constipation/constipation predominant IBS. Patient was advised to have a KUB and start Trulance 3 mg daily. If symptoms persist, he will be [facility] to [facility] for anorectal manometry. Follow-up in 4 to 6 weeks. Orders: Orders Complete Blood Count Auto Diff 12/22/24 K59.00 - Constipation, unspecified XR KUB 12/22/24 K59.00 - Constipation, unspecified TSH reflex Free T4 12/22/24 E03.9 - Hypothyroidism, unspecified Medications: New plecanatide (Trulance) 3 mg PO DAILY 30 tabs 3RF 30 days Coding Level of Care Code Est Pt Level 4 (72164) Diagnoses Constipation K59.00 Hypothyroid E03.9 Early satiety R68.81 Time Spent (min) 24
== END 2024-12-22 08:23 | disposition home or self-care (01) ==
PROVIDERS: PCP Internal Medicine; Referring Provider Internal Medicine Gastroenterology; Visit Provider Internal Medicine Gastroenterology
DX: K59.00 Constipation, unspecified (principal); E03.9 Hypothyroidism, unspecified; R68.81 Early satiety
CPT/HCPCS: 99214

== ENCOUNTER → 2024-12-22 07:32 | Outpatient (BNVA) | payer OTHER, SELFPAY | PROVIDERS: PCP Internal Medicine; Visit Provider Internal Medicine Gastroenterology | DX: K59.00 Constipation, unspecified (principal); E03.9 Hypothyroidism, unspecified | CPT/HCPCS: 99212 ==

== ENCOUNTER → 2025-01-30 08:37 | Outpatient (BNV) | payer OTHER, SELFPAY | PROVIDERS: PCP Internal Medicine; Visit Provider Radiology Diagnostic Radiology | DX: K59.00 Constipation, unspecified (principal) | CPT/HCPCS: 74018 ==

== ENCOUNTER 2025-02-03 15:13 | Outpatient (REF) | payer OTHER, SELFPAY ==
--- OUTSIDE RECORDS SUMMARY | 2012-05-24 11:40 | XMS_ITS | Continuity of Care Document ---
Author Organization [facility] Address [address] [place] [address] Phone Care Team Providers Care [place] Technician Name Role Phone Unavailable Unavailable Unavailable Allergies, [...] Provider Providers Copied on Encounter Office/outpat ient visit,[facility], [facility], [address], [place], [place], [id number], tel:[phone] [facility] Ur[place] Care pain (chief complaint) PodagraIngrown toenail 3 No Information Office/outpat ient visit,[facility], [facility], [address], [place], [place], [id number], tel:[phone] [facility] Ur[place] Care cold symptoms (chief complaint) ACUTE URI NOSACUTE BRONCHITIS 1 [address]. [address] [place], [id number], [place]. tel:[phone] Office/outpat ient visit,[facility], [address], [place], [place], [id number], tel:[phone] [facility] [place] Care skin growth/ bump (chief complaint) Mucosal vesicle 1 No Information Office/outpat ient visit,[facility], [address], [place], [place], [id number], tel:[phone] [facility] Urgent Care pain, foot (chief complaint) Local skin infection 0 Ariela Smithmil[address]ros. [address] [place], [address], [place]. tel:[phone] Family History Family Member Type Diagnosis Age [...] No Information Instructions Date Instruction Additional Infor mation Take medications as directed Rel ated to Podagra Arrange earlier foll owup visit if symptoms worsen, new symptoms develop, or return to Urgent Care Related to Podagra Seek followup care i f symptoms persist, worsen, or new symptoms developSeek followup care if symp Related to Podagra Instructions for Back and Neck I njuries provided Related to Podagra Assessments Type Assessment Date No Information Patient Care Teams Name Effective Dates (start - stop) Status Members No Information
--- NOTE | ~2025-02-03 | XR_ITS ---
EXAMINATION: XR ABDOMEN KUB CLINICAL INDICATION: DAY 5 [facility]: None available. TECHNIQUE: AP view of the abdomen. FINDINGS: The bowel gas pattern is normal with no evidence of ileus or obstruction. No unusual soft tissue calcifications are noted. The bones are unremarkable. There is a single linear metallic marker in the left hemipelvis, probably in the lower sigmoid colon. XR/XR KUB IMPRESSION: No delayed transit time is evident. Electronically signed by: Reji Boudreaux MD 02/03/2025 03:53 PM EDT
--- OUTSIDE RECORDS SUMMARY | 2025-02-03 18:27 | XMS_ITS | Clinical Summary ---
Author Organization [facility] [address] [place] [address] [place] [address] CARMEN Pierce [phone] Phone Care Team Providers [employer] Manager Name Role Phone Stew Adams MD Primary [...] Care Team Description 11/28/2024 Telephone Adult Medicine [address] [phone] Stew Adams MD 11/18/2024 Telephone Adult Medicine [address] [phone] Stew Adams MD 11/18/2024 Telephone Adult Medicine [address] [phone] Stew Adams MD 11/17/2024 9:00 AM EDT Office Visit Adult Medicine [address] [phone] Stew Adams MD Adult general medical examination (Primary Dx); Depression screening negative; Subclinical hypothyroidism; Screening for lipid disorders; Screening for endocrine, metabolic and immunity disorder from Last 3 Months Immunizations Immunization Administration Dates Next Due Anthrax 07/02/2008, 8,10/21/2007,05/01 DTaP (Infanrix) 6wks to less than 7yo 06/22/2016 Hepatitis A Adult (Havrix; V aqta) 19yo and older 03/19/2006,07/26/2005,07/03/2005 Hepatitis B (Xzpwkqc-A-Xywiw , Recombivax HB-Adult) 19yo and older 07/26/2005 [...] COMMENT: Viral thyroiditis dx 03/2017, [place] [facility] [place] to follow up 03/2019 with them [...] 9:00 AM EDT Office Visit Adult Medicine [facility] [address], [place] [phone] Stew Adams MD [address] [place], [place] Health Maintenance Due Date Last Done Comments Depression Screening 04/30/2024 05/14/2023 COVID-19 Vaccine ( season) 2024 04/15/2021, 04/05/2021, 09/09/2020, Additional history exists Influenza Vaccine (#1) 2024 4, 03/05/2023, 02/27/2023, Additional history exists Social Influencers of Health Screening 11/17/2025 11/17/2024 Cholesterol Screening (Lipid Panel) 11/17/2029 11/17/2024, 05/14/2023 DTaP,Tdap,and Td Vaccines (6 - Td or Tdap) 11/02/2030 11/02/2020, 06/22/2016, 06/22/2016, Additional history exists Colorectal Cancer Screening: Colonoscopy 01/03/2034 01/04/2024, 01/04/2024 RSV Immunization Adult Patients (1 - 1-dose 75+ series) 2053 IPV Vaccines Discontinued 07/20/2005 Meningococcal ACWY Vaccine [...] COLONOSCOPY REPORT Routine 01/04/2024 4:04 PM EDT DEPRESSION SCREENING Routine 05/14/2023 HEPATITIS C SCREENING Routine 05/14/2023 from Last 3 Months or Most Recently Relevant to Health Maintenance Results * Interferon gamma interpretation (11/17/2024 9:59 AM EDT) [facility] Quantiferon Plus Interpretation Negative Negative LAB CHEMISTRY METHOD 11/18/2024 9:19 AM EDT [facility] Blood Venous blood specimen / Unknown Venipuncture / Unknown 11/17/2024 9:59 AM EDT 11/17/2024 9:59 AM EDT Stew Adams MD LAB BLOOD ORDERABLES F inal Result Performing Organization Address City/[facility]/ZIP Co de Phone Number [facility] [address] [place] [address], [place] [phone] * Interferon gamma antigen 2 (11/17/2024 9:59 AM EDT) Blood Venous blood specimen / Unknown Venipuncture / Unknown 11/17/2024 9:59 AM EDT 11/17/2024 9:59 AM EDT us Stew Adams MD LAB BLOOD ORDERABLES F inal Result Performing Organization Address City/[facility]/ZIP Co de Phone Number [facility] [address] [place] [address], [place] [phone] * Interferon gamma antigen 1 (11/17/2024 9:59 AM EDT) Blood Venous blood specimen / Unknown Venipuncture / Unknown 11/17/2024 9:59 AM EDT 11/17/2024 9:59 AM EDT us Stew Adams MD LAB BLOOD ORDERABLES F inal Result Performing Organization Address City/[facility]/ZIP Co de Phone Number [facility] [address] [place] [address], [place] [phone] * Interferon gamma mitogen (11/17/2024 9:59 AM EDT) Blood Venous blood specimen / Unknown Venipuncture / Unknown 11/17/2024 9:59 AM EDT 11/17/2024 9:59 AM EDT us Stew Adams MD LAB BLOOD ORDERABLES F inal Result Performing Organization Address [facility] Co de Phone Number [facility] [address] [place] [address], [place] [phone] * Interferon gamma NIL (11/17/2024 9:59 AM EDT) Blood Venous blood specimen / Unknown Venipuncture / Unknown 11/17/2024 9:59 AM EDT 11/17/2024 9:59 AM EDT us Stew Adams MD LAB BLOOD ORDERABLES F inal Result Performing Organization Address [facility] Co de Phone Number [facility] [address] [place] [address], [place] [phone] * (ABNORMAL) Thyroid stimulating hormone with reflex to free t4 and free t3 (11/17/2024 9:59 AM EDT) [facility] TSH 6.20(H) 0.40 - 4.00 mcIU/mL LAB CHEMISTRY METHOD 11/17/2024 3:16 PM EDT [facility] Blood Venous blood specimen / Unknown Venipuncture / Unknown 11/17/2024 9:59 AM EDT 11/17/2024 9:59 AM EDT us Stew Adams MD LAB BLOOD ORDERABLES F inal Result Performing Organization Address [facility]/ZIP Co de Phone Number [facility] [address] [place] [address], [place] [phone] * Free thyroxine with reflex to free triiodothyronine (11/17/2024 9:59 AM EDT) Free T4 1.09 0.70 - 1.80 ng/dL LAB CHEMISTRY METHOD 11/17/2024 5:54 PM EDT [facility] Blood Venous blood specimen / Unknown Venipuncture / Unknown 11/17/2024 9:59 AM EDT 11/17/2024 9:59 AM EDT Stew Adams MD LAB BLOOD ORDERABLES F inal Result Performing Organization Address [facility]/ZIP Co de Phone Number [facility] [address] [place] [address], [place] [phone] * Lipid panel with reflex to direct LDL (11/17/2024 9:59 AM EDT) [facility] Signature Cholesterol 146 0 - 200 mg/dL LAB CHEMISTRY METHOD 11/17/2024 1:47 PM EDT [facility] Triglycerides 52 0 - 150 mg/dL LAB CHEMISTRY METHOD 11/17/2024 1:47 PM EDT [facility] HDL 71 >=40 mg/dL LAB CHEMISTRY METHOD 11/17/2024 1:47 PM EDT [facility] LDL Calculated 65 0 - 100 mg/dL LAB CHEMISTRY METHOD 11/17/2024 1:47 PM EDT [facility] VLDL Cholesterol Ravi 10.4 mg/dL LAB CHEMISTRY METHOD 11/17/2024 1:47 PM EDT [facility] Non HDL Chol. (LDL+VLDL) 75 <145 mg/dL LAB CHEMISTRY METHOD 11/17/2024 1:47 PM EDT [facility] Chol/HDL Ratio 2.1 0.0 - 4.4 LAB CHEMISTRY METHOD 11/17/2024 1:47 PM EDT [facility] Blood Venous blood specimen / Unknown Venipuncture / Unknown 11/17/2024 9:59 AM EDT 11/17/2024 9:59 AM EDT us Stew Adams MD LAB BLOOD ORDERABLES F inal Result [facility] [address] [place] [address], [place] [phone] * (ABNORMAL) CBC auto differential (11/17/2024 9:59 AM EDT) WBC 4.4(L) 4.8 - 10.8 K/mcL LAB HEMETOLOGY METHOD 11/17/2024 12:51 PM EDT [facility] RBC 4.70 4.50 - 5.50 M/mcL LAB HEMETOLOGY METHOD 11/17/2024 12:51 PM EDT [facility] Hemoglobin 15.0 13.5 - 17.5 g/dL LAB HEMETOLOGY METHOD 11/17/2024 12:51 PM EDT [facility] Hematocrit 44.4 42.0 - 54.0 % LAB HEMETOLOGY METHOD 11/17/2024 12:51 PM EDT [facility] MCV 94.1 79.0 - 98.0 FL LAB HEMETOLOGY METHOD 11/17/2024 12:51 PM [facility] MCH 31.8 27.0 - 32.0 pcg LAB HEMETOLOGY METHOD 11/17/2024 12:51 PM EDT [facility] MCHC 33.8 32.0 - 37.0 g/dL LAB HEMETOLOGY METHOD 11/17/2024 12:51 PM [facility] RDW 12.3 11.0 - 15.0 % LAB HEMETOLOGY METHOD 11/17/2024 12:51 PM [facility] Platelets 182 130 - 400 K/mcL LAB HEMETOLOGY METHOD 11/17/2024 12:51 PM [facility] MPV 10.7 7.0 - 11.0 FL LAB HEMETOLOGY METHOD 11/17/2024 12:51 PM [facility] NRBC 0.0 <1.0 % LAB HEMETOLOGY METHOD 11/17/2024 12:51 PM [facility] NRBC Absolute 0.00 <0.10 K/mcL LAB HEMETOLOGY METHOD 11/17/2024 12:51 PM [facility] Neutrophils Relative 62.2 % LAB HEMETOLOGY METHOD 11/17/2024 12:51 PM [facility] Lymphocytes Relative 25.5 % LAB HEMETOLOGY METHOD 11/17/2024 12:51 PM [facility] Monocytes Relative 7.9 % LAB HEMETOLOGY METHOD 11/17/2024 12:51 PM [facility] Eosinophils Relative 3.4 % LAB HEMETOLOGY METHOD 11/17/2024 12:51 PM [facility] Basophils Relative 0.5 % LAB HEMETOLOGY METHOD 11/17/2024 12:51 PM [facility] Immature Granulocytes Relative 0.5 % LAB HEMETOLOGY METHOD 11/17/2024 12:51 PM [facility] Neutrophils Absolute 2.77 1.50 - 7.00 K/mcL LAB HEMETOLOGY METHOD 11/17/2024 12:51 PM [facility] Lymphocytes Absolute 1.13 1.00 - 5.00 K/mcL LAB HEMETOLOGY METHOD 11/17/2024 12:51 PM EDT [facility] Monocytes Absolute 0.35 0.20 - 1.00 K/[facility] LAB HEMETOLOGY METHOD 11/17/2024 12:51 PM EDT [facility] Eosinophils Absolute 0.15 0.00 - 0.50 K/[facility] HEMETOLOGY METHOD 11/17/2024 12:51 PM EDT [facility] Basophils Absolute 0.02 0.00 - 0.20 K/[facility] HEMETOLOGY METHOD 11/17/2024 12:51 PM EDT [facility] Immature Granulocytes Absolute 0.02 0.00 - 0.03 K/[facility] HEMETOLOGY METHOD 11/17/2024 12:51 PM EDT [facility] Blood Venous blood specimen / Unknown Venipuncture / Unknown 11/17/2024 9:59 AM EDT 11/17/2024 9:59 AM EDT us Stew Adams MD LAB BLOOD ORDERABLES F inal Result [facility] [address] [place] [address], * Rubeola antibody IgG (11/17/2024 9:59 AM EDT) Rubeola IgG Positive Positive LAB CHEMISTRY METHOD 11/17/2024 1:10 PM EDT [facility] Rubeola IgG Antibody, measured >300.00 >=16.50 AU/mL LAB CHEMISTRY METHOD 11/17/2024 1:10 PM EDT [facility] Blood Venous blood specimen / Unknown Venipuncture / Unknown 11/17/2024 9:59 AM EDT 11/17/2024 9:59 AM EDT Narrative [facility] - 11/17/2024 1:10 PM EDT Interpretation >=16.5 AU/ml is considered to be consistent with Immunity us Stew Adams MD LAB BLOOD ORDERABLES F inal Result Performing Organization Address [facility] de Phone Number [facility] [address] [place] [address], [place] [phone] * Rubella antibody IgG (11/17/2024 9:59 AM EDT) Pathologist [facility] Rubella IgG Quant 47.5 >=10.0 I Unit/mL LAB CHEMISTRY METHOD 11/17/2024 2:41 PM EDT [facility] Rubella IgG Antibody Interp Positive Positive LAB CHEMISTRY METHOD 11/17/2024 2:41 PM EDT [facility] Blood Venous blood specimen / Unknown Venipuncture / Unknown 11/17/2024 9:59 AM EDT 11/17/2024 9:59 AM EDT us Stew Adams MD LAB BLOOD ORDERABLES F inal Result Performing Organization Address [facility] Co de Phone Number [facility] [address] [place] [address], [place] [phone] * (ABNORMAL) Hepatitis B surface antibody (11/17/2024 9:59 AM EDT) Pathologist [facility] Hepatitis B Surface Ab Positive (A) Negative LAB CHEMISTRY METHOD 11/17/2024 2:31 PM EDT [facility] Hepatitis B Surface Ab Quantitative 14.3 mIU/mL LAB CHEMISTRY METHOD 11/17/2024 2:31 PM EDT [facility] Blood Venous blood specimen / Unknown Venipuncture / Unknown 11/17/2024 9:59 AM EDT 11/17/2024 9:59 AM EDT Narrative [facility] - 11/17/2024 2:31 PM EDT >=10 mIU/mL is considered to be consistent with immunity. us Stew Adams MD LAB BLOOD ORDERABLES F inal Result Performing Organization Address [facility] Co de Phone Number [facility] [address] [place] [address], [place] [phone] * Varicella zoster antibody IgG (11/17/2024 9:59 AM EDT) Varicella IgG Positive Positive LAB CHEMISTRY METHOD 11/17/2024 1:10 PM EDT [facility] Varicella Zoster IgG 21.20 >=1.00 S/CO LAB CHEMISTRY METHOD 11/17/2024 1:10 PM EDT [facility] Blood Venous blood specimen / Unknown Venipuncture / Unknown 11/17/2024 9:59 AM EDT 11/17/2024 9:59 AM EDT Narrative [facility] - 11/17/2024 1:10 PM EDT Interpretation >= 1.00 S/CO is considered to be consistent with Immunity us Stew Adams MD LAB BLOOD ORDERABLES F inal Result Performing Organization Address [facility] Co de Phone Number [facility] [address] [place] [address], [place] [phone] * Mumps antibody IgG (11/17/2024 9:59 AM EDT) Mumps IgG Positive Positive LAB CHEMISTRY METHOD 11/17/2024 1:10 PM EDT [facility] Mumps IgG Antibody, measured 281.0 >=11.0 AU/mL LAB CHEMISTRY METHOD 11/17/2024 1:10 PM EDT [facility] Blood Venous blood specimen / Unknown Venipuncture / Unknown 11/17/2024 9:59 AM EDT 11/17/2024 9:59 AM EDT Narrative [facility] - 11/17/2024 1:10 PM EDT >=11 AU/mL is considered to be consistent with Immunity. us Stew Adams MD LAB BLOOD ORDERABLES F inal Result Performing Organization Address [facility]/ZIP Co de Phone Number [facility] [address] [place] [address], [place] [phone] * Triiodothyronine free (11/17/2024 9:59 AM EDT) T3, Free 329 230 - 420 pcg/dL LAB CHEMISTRY METHOD 11/17/2024 7:49 PM EDT [facility] Blood Venous blood specimen / Unknown Venipuncture / Unknown 11/17/2024 9:59 AM EDT 11/17/2024 9:59 AM EDT us Stew Adams MD LAB BLOOD ORDERABLES F inal Result Performing Organization Address [facility]/ZIP Co de Phone Number [facility] [address] [place] [address], [place] [phone] * Comprehensive metabolic panel (11/17/2024 9:59 AM EDT) Sodium 139 133 - 145 mmol/L LAB CHEMISTRY METHOD 11/17/2024 1:47 PM EDT [facility] Potassium 4.3 3.5 - 5.5 mmol/L LAB CHEMISTRY METHOD 11/17/2024 1:47 PM EDT [facility] Chloride 105 96 - 110 mmol/L LAB CHEMISTRY METHOD 11/17/2024 1:47 PM EDT [facility] CO2 31 21 - 32 mmol/L LAB CHEMISTRY METHOD 11/17/2024 1:47 PM EDT [facility] Anion Gap 3 3 - 11 LAB CHEMISTRY METHOD 11/17/2024 1:47 PM [facility] Glucose 87 70 - 100 mg/dL LAB CHEMISTRY METHOD 11/17/2024 1:47 PM [facility] BUN 18 5 - 25 mg/dL LAB CHEMISTRY METHOD 11/17/2024 1:47 PM [facility] Creatinine 1.24 0.70 - 1.30 mg/dL LAB CHEMISTRY METHOD 11/17/2024 1:47 PM [facility] eGFR 73 >=60 mL/min/1. 73m2 LAB CHEMISTRY METHOD 11/17/2024 1:47 PM [facility] Comment:Calculation based on the Chronic Kidney Disease Epidemiology Collaboration (CKD-EPI) equation refit without adjustment for race. BUN/Creatinine Ratio 14.5 LAB CHEMISTRY METHOD 11/17/2024 1:47 PM [facility] Calcium 9.3 8.5 - 10.5 mg/dL LAB CHEMISTRY METHOD 11/17/2024 1:47 PM [facility] AST (SGOT) 21 10 - 42 unit/L LAB CHEMISTRY METHOD 11/17/2024 1:47 PM [facility] ALT (SGPT) 28 10 - 60 unit/L LAB CHEMISTRY METHOD 11/17/2024 1:47 PM [facility] Alkaline Phosphatase 74 42 - 121 unit/L LAB CHEMISTRY METHOD 11/17/2024 1:47 PM [facility] Total Protein 7.3 6.0 - 8.0 g/dL LAB CHEMISTRY METHOD 11/17/2024 1:47 PM [facility] Albumin 4.0 3.2 - 5.0 g/dL LAB CHEMISTRY METHOD 11/17/2024 1:47 PM [facility] Total Bilirubin 0.6 0.0 - 1.4 mg/dL LAB CHEMISTRY METHOD 11/17/2024 1:47 PM [facility] Blood Venous blood specimen / Unknown Venipuncture / Unknown 11/17/2024 9:59 AM EDT 11/17/2024 9:59 AM EDT Stew Adams MD LAB BLOOD ORDERABLES F inal Result [facility] ([facility]) [facility] [address] [place] [address], * External Colonoscopy Report (01/04/2024 4:04 PM EDT) Anatomical Region Laterality Modality Endoscopy Historical Provider GI~PROCEDURE ORDERABLES F inal Result * Depression Screening (05/14/2023) Depression Screening abstracted Historical Provider HEALTH MAINTENANCE Final Result * Hepatitis C Screening (05/14/2023) Hepatitis C Screening abstracted Historical Provider HEALTH MAINTENANCE Final Result from Last 3 Months or Most Recently Relevant to Health Maintenance Insurance [facility] Care Teams [employer] Manager Relationship Specialty Start Date End Date Stew Adams MD [address] [place] [address] PCP - General 03/26/23
== END 2025-02-03 15:14 | disposition home or self-care (01) ==
LOC: HO.XRAY 15:13
PROVIDERS: Visit Provider Internal Medicine Gastroenterology
DX: K59.00 Constipation, unspecified (principal)
CPT/HCPCS: 74018

== ENCOUNTER → 2025-02-03 15:34 | Outpatient (BNV) | payer OTHER, SELFPAY | PROVIDERS: Visit Provider Radiology Diagnostic Radiology | DX: K59.00 Constipation, unspecified (principal) | CPT/HCPCS: 74018 ==